=== PATIENT | female | born 1980 | race Caucasian/White ===

== ENCOUNTER 2017-04-19 15:32 | Emergency (ER) | payer SELFPAY ==
[~2017-04-19] VITALS: Ht 154.9 cm; Wt 95.3 kg
[~2017-04-19 15:32] MED LIST: ACET1TAB43 PO; ALBU8.5H2 IH; ALBU8.5H4 IH; ALPR.25T PO; AMOX500C2 PO; ASPI-586 PO; AZIT-21 PO; BENZ100C18 PO; BENZ200C25 PO; CEPH500C PO; CTLP20T PO; CYCL10TA9 PO; D50KC PO; DCS100C PO; DEPO SHOT; DEPO SHOT IM; DICL75TA2 PO; DOXY100C2 PO; EST.1TD TOP; ESTR0.5T PO; FAMO20TA5 PO; FERR-57 PO; FRSM20T PO; GBPN100C PO; GFCD10B PO; HCTZ PO; HCTZ12.5T GT; HYDR-3812 PO; HYDR1TAB PO; IBP600T1 PO; IBP800T PO; KETO-22 PO; LISINOPRIL/HCTZ; MELO-195 PO; MELO15TA39 PO; METH4TAB PO; METO-333 PO; MOBIC; MULT-305 PO; NAPR-243 PO; NEOM10DR20 LEFT EAR; NITR100C3 PO; OMEP20CA12 PO; ONDA-42 SL; PHEN200T27 PO; POTA20PI IV; POTA99TA15 PO; POTA99TA21 PO; PRCD5U PO; PRD20T PO; SSD50T TOP; TRAM-21 PO; TRAM50TA2; TRAZ-144 PO; TRIA16.5 NS; TRM50T PO; VICODIN PO; VNL75CCR PO
[2017-04-19] MEDS ORDERED: CELE-63 (15:56)
[2017-04-19] MEDS ORDERED: NS IV 500 ML 500 ML IV ONE (16:22)
--- NOTE | 2017-04-19 16:22 | ED Cardiac General ---
History of Present Illness General Chief Complaint: Respiratory Problems Stated Complaint: SHAKY,SOB Nursing Triage Note: c/o feeling "jittery" and soa x2 days Source: patient Exam Limitations: no limitations History of Present Illness Time seen by provider: 16:13 Initial Comments Patient presents to ER by private conveyance with chief complaint of for the past 2 days progressively feeling worse with some tightness in her chest and helped patient's flutters. She had an ablation for a SVT back in May by Dr. Deras in [facility]. She's never had a heart attack and she has no primary family with early heart disease. She does not have any known thyroid problems. She's been told the past to take a thiazide diuretic but does not take it except as needed. She says she occasionally feels puffy but not today. She is not having any nausea or chest pain or shortness of breath or numbness or tingling in the hands or arms jaw or neck. Allergies and Home Medications Allergies Coded Allergies: oxycodone (Unverified Allergy, Mild, 01/24/09) venlafaxine (Verified Allergy, Mild, 09/07/13) Home Medications Aspirin 81 Mg Tablet.dr, 81 MG PO DAILY, (Reported) Celecoxib 200 Mg Capsule, #30 (Reported) Hydrocodone/Acetaminophen 1 Each Tablet, 1-2 EACH PO Q6H PRN for PAIN, #30 Prescribed by: JACINTO HERRMANN on 06/26/16 1614 Review of Systems Constitutional: No chills, No diaphoresis Respiratory: Denies Cough, Denies Shortness of Air Cardiovascular: Denies Chest Pain, Denies Edema, Denies Irregular Heart Rate Gastrointestinal: See HPI, Denies Abdomen Distended, Abdominal Pain, Denies Constipated, Denies Diarrhea (loose stools), Nausea, Poor Appetite, Denies Vomiting Genitourinary: Denies Burning Musculoskeletal: No back pain, No joint pain Skin: No pruritus, No rash Psychiatric/Neurological: Denies Headache, Denies Numbness Past Kdjmsdz-Jhnagf-Wcdgra Hx Patient Social History Alcohol Use: Denies Use Recreational Drug Use: No Smoking Status: Current Everyday Smoker Type Used: Cigarettes Former Smoker/When Quit: Apr 10, 2014 2nd Hand Smoke Exposure: Yes Recent Foreign Travel: No Contact w/Someone Who Travel: No Recent Infectious Disease Expo: No Recent Hopitalizations: No Immunizations Up To Date Tetanus Booster (TDap): Unknown Date of Influenza Vaccine: Jul 06, 2014 Seasonal Allergies Seasonal Allergies: No Surgeries HX Surgeries: Yes (CARPAL TUNNEL, heart cath) Surgeries: Adenoidectomy, Appendectomy, Cardiac, Section, Hysterectomy , Oophorectomy, Orthopedic, Tonsillectomy, Tubal Ligation Respiratory Hx Respiratory Disorders: No Respiratory Disorders: Tuberculosis Cardiovascular Hx Cardiac Disorders: Yes (ABLATION) Cardiac Disorders: Chronic Edema/Swelling, Hypertension Neurological Hx Neurological Disorders: No 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 System : No Female 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: 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 Genitourinary Hx Genitourinary Disorders: Yes Genitourinary Disorders: Bladder Infection Gastrointestinal Hx Gastrointestinal Disorders: No Musculoskeletal Hx Musculoskeletal Disorders: Yes (RIGHT CARPAL TUNNEL) Musculoskeletal Disorders: Arthritis, Chronic Back Pain Endocrine Hx Endocrine Disorders: No HEENT HX ENT Disorders: No Hearing Impairment: Hard of Hearing Cancer Hx Cancer: No Psychosocial Hx Psychiatric Problems: Yes Behavioral Health Disorders: Anxiety, Depression Integumentary HX Skin/Integumentary Disorder: No Blood Transfusions Hx Blood Disorders: No Physical Exam Vital Signs Vital Sign - Last 12Hours 04/19/17 15:56 Temp 98.0 Pulse 81 Resp 18 B/P (MAP) 136/97 Pulse Ox 98 O2 Delivery Room Air Capillary Refill : Less Than 3 Seconds General Appearance: No Apparent Distress, WD/WN HEENT: PERRL/EOMI, Pharynx Normal Neck: Full Range of Motion, Supple Respiratory: Chest Non Tender, Lungs Clear, Normal Breath Sounds Cardiovascular: Regular Rate, Rhythm, No Edema Gastrointestinal: Normal Bowel Sounds, No Organomegaly, No Pulsatile Mass, Soft , Tenderness (pain in his epigastrium and right upper quadrant. Jason's positive.) Extremity: Normal Capillary Refill, Normal Inspection, No Pedal Edema Neurologic/Psychiatric: Alert, Oriented x3 Skin: Normal Color, Warm/Dry Progress/Results/Core Measures Results/Orders Lab Results Laboratory Tests Test 04/19/17 16:25 04/19/17 16:35 Range/Units Urine Color YELLOW Urine Clarity SLIGHTLY CLOUDY Urine pH 7 5-9 Urine Specific [place] 1.010 L 1.016-1.022 Urine Protein NEGATIVE NEGATIVE Urine Glucose (UA) NEGATIVE NEGATIVE Urine Ketones NEGATIVE NEGATIVE Urine Nitrite NEGATIVE NEGATIVE Urine Bilirubin NEGATIVE NEGATIVE Urine Urobilinogen 4 H NORMAL MG/DL Urine Leukocyte Esterase NEGATIVE NEGATIVE Urine RBC (Auto) NEGATIVE NEGATIVE Urine RBC NONE /HPF Urine WBC NONE /HPF Urine Squamous Epithelial Cells 5-10 /HPF Urine Crystals NONE /LPF Urine Bacteria TRACE /HPF Urine Casts NONE /LPF Urine Mucus NEGATIVE /LPF Urine Culture Indicated NO White Blood Count 11.6 H 4.3-11.0 10^3/uL Red Blood Count 5.21 4.35-5.85 10^6/uL Hemoglobin 14.7 11.5-16.0 G/DL Hematocrit 44 35-52 % Mean Corpuscular Volume 84 80-99 FL Mean Corpuscular Hemoglobin 28 25-34 PG Mean Corpuscular Hemoglobin Concent 34 32-36 G/DL Red Cell Distribution Width 13.1 10.0-14.5 % Platelet Count 328 130-400 10^3/uL Mean Platelet Volume 9.7 7.4-10.4 FL Neutrophils (%) (Auto) 66 42-75 % Lymphocytes (%) (Auto) 25 12-44 % Monocytes (%) (Auto) 8 0-12 % Eosinophils (%) (Auto) 1 0-10 % Basophils (%) (Auto) 0 0-10 % Neutrophils # (Auto) 7.6 1.8-7.8 X 10^3 Lymphocytes # (Auto) 2.9 1.0-4.0 X 10^3 Monocytes # (Auto) 0.9 0.0-1.0 X 10^3 Eosinophils # (Auto) 0.2 0.0-0.3 10^3/uL Basophils # (Auto) 0.0 0.0-0.1 10^3/uL Sodium Level 139 135-145 MMOL/L Potassium Level 4.5 3.6-5.0 MMOL/L Chloride Level 107 98-107 MMOL/L Carbon Dioxide Level 22 21-32 MMOL/L Anion Gap 10 5-14 MMOL/L Blood Urea Nitrogen 6 L 7-18 MG/DL Creatinine 0.74 0.60-1.30 MG/DL Estimat Glomerular Filtration Rate > 60 BUN/Creatinine Ratio 8 Glucose Level 96 70-105 MG/DL Calcium Level 9.2 8.5-10.1 MG/DL Magnesium Level 2.6 H 1.8-2.4 MG/DL Total Bilirubin 0.3 0.1-1.0 MG/DL Aspartate Amino Transf (AST/SGOT) 26 5-34 U/L Alanine Aminotransferase (ALT/SGPT) 30 0-55 U/L Alkaline Phosphatase 132 40-136 U/L Troponin I < 0.30 <0.30 NG/ML B-Type Natriuretic Peptide < 10.0 <100.0 PG/ML Total Protein 7.5 6.4-8.2 GM/DL Albumin 4.0 3.2-4.5 GM/DL Thyroid Stimulating Hormone (TSH) 0.49 0.35-4.94 UIU/ML My Orders Orders - AMANDA CORTES Continuous Ekg Monitoring (04/19/17 16:00) Ekg Tracing (04/19/17 16:00) BNP (04/19/17 16:22) Cbc With Automated Diff (04/19/17 16:22) Comprehensive Metabolic Panel (04/19/17 16:22) Magnesium (04/19/17 16:22) Thyroid Stimulating Hormone (04/19/17 16:22) Troponin I (04/19/17 16:22) Ua Culture If Indicated (04/19/17 16:22) Chest 1 View, Ap/Pa Only (04/19/17 16:22) Saline Lock/Iv-Start (04/19/17 16:22) Ns Iv 500 Ml (Sodium Chloride 0.9%) (04/19/17 16:22) Continuous Ekg Monitoring (04/19/17 16:24) Medications Given in ED Current Medications Medications Dose Ordered Sig/Macho Route Start Time Stop Time Status Last Admin Dose Admin Sodium Chloride 500 ml @ 0 mls/hr Q0M ONCE IV 04/19/17 16:22 04/19/17 16:24 DC 04/19/17 16:33 0 MLS/HR Vital Signs/I&O Vital Sign - Last 12Hours 04/19/17 15:56 Temp 98.0 Pulse 81 Resp 18 B/P (MAP) 136/97 Pulse Ox 98 O2 Delivery Room Air Blood Pressure Mean: 110 Progress Note : Time: 18:26 Progress Note Blood results looking for possible damage to heart myocardium was also unremarkable. We will let her go home and follow up with Dr. Trammell Friday morning in the clinic. ECG Initial ECG Impression Date: Apr 19, 2017 Initial ECG Impression Time: 16:01 Initial ECG Rate: 84 Initial ECG Rhythm: Normal Sinus Initial ECG Intervals: Normal Initial ECG Impression: Normal Initial ECG Comparisson: No Previous ECG Available Comment No ST wave elevation or depression. Diagnostic Imaging Diagonstic Imaging: Xray, CT Plain Films/CT/US/NM/MRI: chest Comments NAME: ABBI FELIZ MED REC#: [id number] PHYSICIAN: AMANDA CORTES MD CC: MICHAEL DE GUZMAN MD; AMANDA CORTES Page 1 of 1 RADIOLOGY REPORT [place]IA [place], [place] CC: MICHAEL DE GUZMAN MD; AMANDA CORTES Page 1 of 1 RADIOLOGY REPORT NAME: ABBI FELIZ MED REC#: [id number] PT STATUS: REG ER : 1980 PHYSICIAN: AMANDA CORTES MD ADMIT DATE: 04/19/17/ER Signed Date of Exam: 04/19/17 CHEST 1 VIEW, AP/PA ONLY INDICATION: Shortness of air, jittery for two today's. ? EXAMINATION: Frontal chest, 04/19/2017. COMPARISON: Chest from 06/11/16. FINDINGS: The heart is slightly prominent and there is mild pulmonary vasculature congestion. There are no effusions or infiltrates. There is no pneumothorax. IMPRESSION: Cardiomegaly with mild pulmonary vasculature congestion suspected. Dictated by: Dictated on workstation # [id number] Dict: 04/19/17 1637 Trans: 04/19/17 1713 Interpreted by: MICHAEL DE GUZMAN MD Electronically signed by: MICHAEL DE GUZMAN MD 04/19/17 1713 Reviewed: Reviewed by Me Departure Impression Impression: Primary Impression: Heart palpitations Additional Impression: Chest tightness Disposition: 01 HOME, SELF-CARE Condition: Stable Departure-Patient Inst. Decision time for Depature: 18:28 Referrals: GABRIEL GARIBAY DO (PCP/Family) Primary Care Physician Patient Instructions: Palpitations (DC) Add. Discharge Instructions: Go home drink plenty fluids and avoid copious amounts of caffeine. Take your medicines as prescribed by your heart doctor. If you have another run of palpitations you can try bearing down as in the valsalva maneuver (as though you 're having a bowel movement) to see if this breaks them. Time how long they last. If they're accompanied by chest pain, nausea and vomiting, or numbness in her arms, neck, or jaw you should return to the ER. Otherwise plan on following up with your Dr. Farr at [phone] Friday morning to get an appointment to be seen within the following week or two. All discharge instructions reviewed with patient and/or family. Voiced understanding. Copy Copies To 1: GABRIEL GARIBAY DO Copies To 2: MITZY FARR MD FACP FACC CCDS AMANDA CORTES Apr 19, 2017 16:22
[2017-04-19 16:43] LABS: BILIRUBIN,URINE NEGATIVE (NEGATIVE); KETONES,URINE NEGATIVE (NEGATIVE); LEUKOCYTE ESTERASE ,URINE NEGATIVE (NEGATIVE); NITRITE,URINE NEGATIVE (NEGATIVE); PH,URINE 7 (5-9); PROTEIN,URINE NEGATIVE (NEGATIVE); UROBILINOGEN,URINE 4 MG/DL (NORMAL)
--- NOTE | 2017-04-19 16:47 | Diagnostic Imaging Report ---
INDICATION: Shortness of air, jittery for two today's. ? EXAMINATION: Frontal chest, 04/19/2017. COMPARISON: Chest from 06/11/16. FINDINGS: The heart is slightly prominent and there is mild pulmonary vasculature congestion. There are no effusions or infiltrates. There is no pneumothorax. IMPRESSION: Cardiomegaly with mild pulmonary vasculature congestion suspected. Dictated by: Dictated on workstation # [id number]
[2017-04-19 16:48] LABS: BASOPHILS % (AUTO) 0 % (0-10); EOSINOPHILS # (AUTO) 0.2 10^3/uL (0.0-0.3); EOSINOPHILS % (AUTO) 1 % (0-10); LYMPHOCYTES # (AUTO) 2.9 X 10^3 (1.0-4.0); LYMPHOCYTES % (AUTO) 25 % (12-44); MEAN CORPUSCULAR HEMOGLOBIN 28 PG (25-34); MEAN CORPUSCULAR HGB CONC 34 G/DL (32-36); MEAN CORPUSCULAR VOLUME 84 FL (80-99); MEAN PLATELET VOLUME 9.7 FL (7.4-10.4); MONOCYTES # (AUTO) 0.9 X 10^3 (0.0-1.0); MONOCYTES % (AUTO) 8 % (0-12); NEUTROPHILS # (AUTO) 7.6 X 10^3 (1.8-7.8); NEUTROPHILS % (AUTO) 66 % (42-75); PLATELET COUNT 328 10^3/uL (130-400); RED BLOOD COUNT 5.21 10^6/uL (4.35-5.85); RED CELL DISTRIBUTION WIDTH 13.1 % (10.0-14.5); WHITE BLOOD COUNT 11.6 10^3/uL (4.3-11.0)
[2017-04-19 17:19] LABS: ALANINE AMINOTRANSFERASE 30 U/L (0-55); ANION GAP 10 MMOL/L (5-14); ASPARTATE AMINO TRANSFERASE 26 U/L (5-34); BILIRUBIN,TOTAL 0.3 MG/DL (0.1-1.0); BLOOD UREA NITROGEN 6 MG/DL (7-18); BUN/CREATININE RATIO 8; CALCIUM 9.2 MG/DL (8.5-10.1); CARBON DIOXIDE 22 MMOL/L (21-32); CHLORIDE 107 MMOL/L (98-107); CREATININE SERUM 0.74 MG/DL (0.60-1.30); GFR ESTIMATED > 60; GLUCOSE 96 MG/DL (70-105); MAGNESIUM 2.6 MG/DL (1.8-2.4); SODIUM 139 MMOL/L (135-145); TOTAL PROTEIN 7.5 GM/DL (6.4-8.2)
[2017-04-19 17:27] LABS: POTASSIUM 4.5 MMOL/L (3.6-5.0)
[2017-04-19 17:39] LABS: THYROID STIMULATING HORMONE 0.49 UIU/ML (0.35-4.94); TROPONIN I < 0.30 NG/ML (<0.30)
[2017-04-19 18:37] VITALS: BP 128/100
== END 2017-04-19 18:35 | disposition home or self-care (01) ==
LOC: EDUNIT# 15:32 → ER 15:35
DX: R00.2 Palpitations (principal); R07.89 Other chest pain; I10 Essential (primary) hypertension; M19.90 Unspecified osteoarthritis, unspecified site; F41.9 Anxiety disorder, unspecified; F32.9 Major depressive disorder, single episode, unspecified; M54.9 Dorsalgia, unspecified; G89.29 Other chronic pain; F17.210 Nicotine dependence, cigarettes, uncomplicated; Z79.82 Long term (current) use of aspirin; Z90.89 Acquired absence of other organs; Z90.710 Acquired absence of both cervix and uterus; Z98.51 Tubal ligation status
CPT/HCPCS: 36415; 71010; 80053; 81000; 83735; 83880; 84443; 84484; 85025

== ENCOUNTER → 2017-11-06 | Outpatient (CLI) | payer OTHER ==
[~2017-11-06] MED LIST changes: +ACHD5005 PO; +CELE-63; -HYDR-3812 PO
--- NOTE | 2017-11-06 12:49 | Diagnostic Imaging Report ---
INDICATION: Right nipple discharge. Correlation is made with prior mammogram from 02/22/2016 and 09/23/2013. The current study was also evaluated with a Computer Aided Detection (CAD) system. FINDINGS: Both breasts are primarily involutional. No mass or malignant-appearing microcalcifications are seen. The axillae are unremarkable. IMPRESSION: No mammographic features suspicious for malignancy. However, since patient has right nipple discharge, further evaluation of the retroareolar right breast with ultrasound is recommended. ACR BI-RADS Category 0: Incomplete. (Needs additional imaging evaluation). Result letter will be mailed to the patient. Note: At least 10% of breast cancer is not imaged by mammography. Dictated by: Dictated on workstation # [id number]
--- NOTE | 2017-11-06 12:55 | Diagnostic Imaging Report ---
Indication: Right nipple discharge. Comparison: Correlation is made with the mammogram earlier the same day. Findings: Sonographic interrogation of the retroareolar right breast was performed. No solid or cystic mass is identified. Impression: BI-RADS category 1. No sonographic abnormality is identified. ACR BI-RADS Category 1: Negative. Result letter will be mailed to the patient. Note: At least 10% of breast cancer is not imaged by mammography. Dictated by: Dictated on workstation # [id number]
== END ==
LOC: RAD 09:27
DX: N64.52 Nipple discharge (principal)
CPT/HCPCS: 76641; 77067

== ENCOUNTER 2018-04-08 19:55 | Emergency (ER) | payer SELFPAY ==
[~2018-04-08] VITALS: Ht 154.9 cm; Wt 86.2 kg
[2018-04-08] MEDS ORDERED: RT-ALBUTEROL/IPRATROPIUM 3 ML (DUONEB) VIAL INH ONE (20:15)
--- NOTE | 2018-04-08 20:21 | ED Cough/URI ---
General Chief Complaint: Cough/Cold/Flu Symptoms Stated Complaint: HURTS TO BREATHE Source: patient Exam Limitations: no limitations History of Present Illness Date Seen by Provider: Apr 08, 2018 Time Seen by Provider: 20:20 Initial Comments Patient is a 38-year-old female who presents to the emergency room with complaints of upper respiratory infection. She states that last she started with a runny nose and sore throat. It has settled into her lungs at this time causing her to cough and causing her pain when she does cough. She denies any other chest pain other than with coughing. Denies shortness of breath , nausea, vomiting, fevers. Timing/Duration: week Severity/Quality: mild, dry cough Prior Episodes/Possible Cause: no prior episodes Associated Symptoms: cough, sore throat Allergies and Home Medications Allergies Coded Allergies: oxycodone (Unverified Allergy, Mild, 01/24/09) venlafaxine (Verified Allergy, Mild, 09/07/13) Home Medications Aspirin 81 Mg Tablet.dr, 81 MG PO DAILY, (Reported) Azithromycin 250 Mg Tablet, 250 MG PO UD Prescribed by: MARIA R BRAND on 04/08/182104 Hydrocodone Bit/Acetaminophen 1 Each Tablet, 1-2 EACH PO Q6H PRN for PAIN Prescribed by: JACINTO HERRMANN on 06/26/16 161 Prednisone 10 Mg Tab.ds.pk, 10 MG PO UD Prescribed by: MARIA R BRAND on 04/08/182104 Patient Home Medication List Home Medication List Reviewed: Yes Review of Systems Constitutional: see HPI; No dizziness, No fever, No malaise EENTM: see HPI; No ear discharge, No hearing loss, No ear pain Respiratory: see HPI, cough; No dyspnea on exertion, No short of breath, No stridor Cardiovascular: see HPI; No chest pain, No edema Gastrointestinal: see HPI; No abdominal pain, No constipation, No nausea, No vomiting Genitourinary: see HPI; No decreased output, No discharge Musculoskeletal: see HPI; No back pain, No gout Skin: see HPI; No change in color, No change in hair/nails, No dryness Psychiatric/Neurological: See HPI; Denies Anxiety, Denies Depressed, Denies Emotional Problems, Denies Headache Hematologic/Lymphatic: See HPI; Denies Anemia, Denies Blood Clots Immunological/Allergic: see HPI; denies food allergy, denies grass allergy All Other Systems Reviewed Negative Unless Noted: Yes Past Mivybui-Lxukrf-Gkjdof Hx Past Med/Social Hx: Reviewed Nursing Past Med/Soc Hx Patient Social History Alcohol Use: Occasionally Uses Recreational Drug Use: No Drug of Choice: PAST HX MARIJ[place] Smoking Status: Current Everyday Smoker Type Used: Cigarettes 2nd Hand Smoke Exposure: Yes Recent Foreign Travel: No Contact w/Someone Who Travel: No Recent Hopitalizations: No Physical Abuse: No Sexual Abuse: No Mistreated: No Fear: No Immunizations Up To Date Tetanus Booster (TDap): Unknown Date of Influenza Vaccine: Jul 06, 2014 Seasonal Allergies Seasonal Allergies: No Past Medical History Surgeries: Yes (CARPAL TUNNEL, heart cath, ablation) Adenoidectomy, Appendectomy, Cardiac, Section, Hysterectomy, Oophorectomy, Orthopedic, Tonsillectomy, Tubal Ligation Respiratory: No Tuberculosis Cardiac: Yes (ABLATION for SVT) Chronic Edema/Swelling, Hypertension Neurological: No Female 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 Disorders: Endometriosis 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 oz. 95.383360kj; 37.78 BMI Method:Stated General Appearance: WD/WN, no apparent distress Eyes: Bilateral Eye Normal Inspection, Bilateral Eye PERRL, Bilateral Eye EOMI HEENT: PERRL/EOMI, normal ENT inspection, TMs normal, pharynx normal Neck: non-tender, full range of motion, supple, normal inspection Respiratory: chest non-tender, normal breath sounds, no respiratory distress, no accessory muscle use, wheezing (faint wheezes in the lower lobes bilaterally) Cardiovascular: regular rate, rhythm, no edema, no gallop, no JVD, no murmur Gastrointestinal: non tender, soft, no organomegaly, no pulsatile mass Extremities: normal range of motion, non-tender, normal inspection, no pedal edema, no calf tenderness Neurologic/Psychiatric: alert, normal mood/affect, oriented x 3 Skin: normal color, warm/dry Lymphatic: no adenopathy Progress/Results/Core Measures Suspected Sepsis SIRS Temperature: Pulse: Respiratory Rate: Blood Pressure / Mean: Results/Orders My Orders Orders - MARIA R BRAND Chest Pa/Lat (2 View) (04/08/18 20:09) Albuterol/Ipra Inhalation Soln (Duoneb I (04/08/18 20:15) Svn Small Volume Nebulizer (04/08/18 20:09) Medications Given in ED Vital Signs/I&O 04/08/18 04/08/18 04/08/18 04/08/18 20:07 20:20 20:25 21:21 Temp 97.4 97.4 Pulse 77 77 Resp 16 16 B/P (MAP) 142/101 (115) 142/101 (115) Pulse Ox 98 99 99 O2 Delivery Room Air Room Air Room Air Capillary Refill : Progress Note : Progress Note Patient is feeling better after administration of DuoNeb the wheezing has cleared in her lungs. She does report that she has a Pro Air inhaler at home. She agrees for planes of discharge. Prescriptions for steroid and antibiotic were sent with the patient. Departure Impression Primary Impression: Upper respiratory infection Disposition: 01 HOME, SELF-CARE Condition: Stable/Unchanged Departure-Patient Inst. Decision time for Depature: 20:55 Referrals: [facility] [place] Primary Care Physician Add. Discharge Instructions: Take medications as directed. Continue to use your [id number] cough suppressants. Follow up with your doctor within 1 week for recheck. Return back to the emergency room for any concerns as needed. All discharge instructions reviewed with patient and/or family. Voiced understanding. Scripts Azithromycin (Azithromycin) 250 Mg Tablet 250 MG PO UD for 1 Package, #1 TAB Prov: MARIA R BRAND 04/08/18 Prednisone (Prednisone) 10 Mg Tab.ds.pk 10 MG PO UD, #1 PKG Prov: MARIA R BRAND 04/08/18 Work/School Note: Work Release Form Date Seen in the Emergency Department: Apr 08, 2018 Return to Work: Apr 10, 2018 Restrictions: No Restrictions MARIA R BRAND Apr 08, 2018 20:21
--- NOTE | 2018-04-08 20:52 | Diagnostic Imaging Report ---
Clinical indication: Patient with shortness of air, cough and congestion x 2 days. Exam: Chest x-ray PA and lateral views. Comparisons: Chest x-ray dated 04/19/2017. Findings: Lungs/pleura: Lungs are clear. There is no pneumothorax. There is no pleural effusion. Mediastinum: Unremarkable. Pulmonary vasculature: Unremarkable. Heart: Unremarkable. Bones/extrathoracic soft tissue: There are degenerative spurs involving the thoracic spine. Impression: There is no radiographic evidence of acute cardiopulmonary process. Dictated by: Dictated on workstation # [id number]
[2018-04-08] MEDS ORDERED: PRED10TA22 PO (21:05)
[2018-04-08] MEDS ORDERED: AZIT250T12 PO (21:05)
[2018-04-08 21:21] VITALS: BP 142/101
== END 2018-04-08 21:22 | disposition home or self-care (01) ==
LOC: ER 19:55
DX: J06.9 Acute upper respiratory infection, unspecified (principal); I10 Essential (primary) hypertension; F41.9 Anxiety disorder, unspecified; F32.9 Major depressive disorder, single episode, unspecified; F17.210 Nicotine dependence, cigarettes, uncomplicated; Z90.89 Acquired absence of other organs; Z87.59 Personal history of other complications of pregnancy, childbirth and the puerperium; Z87.448 Personal history of other diseases of urinary system; Z90.710 Acquired absence of both cervix and uterus; Z98.51 Tubal ligation status; Z88.5 Allergy status to narcotic agent; Z88.8 Allergy status to other drugs, medicaments and biological substances; Z79.82 Long term (current) use of aspirin; Z79.52 Long term (current) use of systemic steroids
CPT/HCPCS: 71046; 94640

== ENCOUNTER 2018-11-14 10:23 | Emergency (ER) | payer OTHER ==
[~2018-11-14] VITALS: Ht 154.9 cm; Wt 83.9 kg
[~2018-11-14 10:23] MED LIST changes: +AZIT250T12 PO; +PRED10TA22 PO
--- OUTSIDE RECORDS SUMMARY | 2018-11-14 10:30 | XMS REPORT | Clinical Summary ---
Author Author [facility] Organization [facility] Address Unknown Phone Unavailable Care Team Providers Care Nuclear Powerplant Supervisor Name Role Phone Sue Lawson APRN Unavailable Outpatient, Radiologist Unavailable Unavailable Antonia Devries PCP Sissy Bowen MD 6 Source Comments Some departments are not documenting in the electronic medical record. If you do not see the information that you expected, contact Release of Information in the Health Information Management department at [phone] for further assistance in locating additional records.[facility] Allergies Comments Active Allergy Reactions Severity Noted Date Venlafaxine PALPITATIONS Low 03/07/2016 very low blood pressure Oxycodone-Acetaminophen SEE COMMENTS Low 03/07/2016 Medications End Date Status Medication Sig Dispensed Refills Start Date Active meloxicam (MOBIC) 7.5 mg Take 15 mg by 0 tablet mouth daily. Active traMADol (ULTRAM) 50 mg Take 50 mg by 0 tablet mouth twice daily. Active ERGOCALCIFEROL (VITAMIN Take 5,000 0 D2) (VITAMIN D PO) Units by mouth. Active hydrochlorothiazide Take 12.5 mg 0 (HYDRODIURIL) 12.5 mg tab by mouth tablet daily. Active aspirin 81 mg chewable Chew 81 mg by 0 tablet mouth daily. Take with food. 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 CTA Chest - no pulm embolism or aortic dissection; minimal hiatal hernia and fatty infiltration of the liver history of palpitations lasting up to 10 min 03/10/16 to ED Gastroesophageal reflux disease without esophagitis 06/12/2016 Essential hypertension 06/12/2016 Overview: treated with hctz (and metoprolol) Tobacco use 06/12/2016 Nipple discharge 03/07/2016 Overview: Diagnosis: Right nipple discharge History: Ms. Alejandra Murray is a female who presented to [facility] on 03/07/2016 at age 36 for evaluation of right nipple discharge. She reports a history of bilateral milky white discharge, but since 2013 the discharge has only been on the right. In early February 2016, the discharge became green in color from an outer duct and clear from a central duct. Ms. Murray states that the discharge was spontaneous for one episode, but has otherwise been mostly nonspontaneous. She saw her provider for evaluation and a guac test of the discharge was heme positive. Breast imaging was ordered and outside bilateral diagnostic mammograms and right breast ultrasound were negative. She was referred to the surgery clinic for evaluation. Breast Imaging: Mammogram: Bilateral diagnostic mammograms 09/23/13 ([facility]) for nipple discharge, showed scattered fibroglandular densities. There were no abnormal findings in the left breast. In the right breast, there was an asymmetry projecting behind the nipple on MLO view. Compression views of this asymmetry showed no underlying lesion with the appearance of background scattered fibroglandular densities. Bilateral diagnostic mammograms 02/22/16 ([facility]) showed scattered fibroglandular densities. No abnormal findings were seen. Ultrasound: Bilateral breast ultrasound 09/23/13 ([facility]) showed no abnormal findings. BIRADS 1. Right breast ultrasound 02/22/16 ([facility]) showed no abnormal findings; BIRADS 1. Pertinent PMH: Arthritis, HTN, edema; early menopause due to hyst/BSO Family History: Maternal grandmother with breast cancer at 76. Patient reports that multiple relatives on her maternal side had either breast cancer or a female cancer. Paternal history unknown. 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 health: Age at Menarche: 7 Age at First Live : 16 Age at Menopause: surgical menopause at 32, HRT for 7 months : 2 Para: 2 : Yes, x 1 month Physical Exam on Presentation: Right breast- area of tenderness with palpation in the UIQ. No palpable masses. Green discharge noted from a single duct in the LOQ of the nipple. No skin changes. Left breast- no palpable masses or skin changes. No axillary, infraclavicular, or supraclavicular adenopathy. Referred by: Dr. Sissy Bowen Surgeon: Dr. Moran Immunizations Name Dates Previously Given Next Due Flu Vaccine=>3 YO 06/22/2014 (Historical) Family History Medical History Relation Name Comments Arthritis-osteo Maternal Grandmother Cancer-Breast Maternal Grandmother Diabetes Maternal Grandmother Hypertension Maternal Grandmother Depression Mother Diabetes Mother Relation Name Status Comments Father Alive Maternal Grandmother (Age 76) Mother (Age 55) Social History Date Tobacco Use Types Packs/Day Years Used Current Every Day Smoker Cigarettes 0.25 15 Smokeless Tobacco: Never Used Tobacco Cessation: Ready to Quit: Yes Alcohol Use Drinks/Week oz/Week Comments Yes occasionally Sex Assigned at Date Recorded Not on file Industry Job Start Date Occupation Not on file Not on file Not on file Travel End Travel History Travel Start No recent travel history available. Last Filed Vital Signs Time Taken Vital Sign Reading 06/21/2016 9:47 AM CDT Blood Pressure 112/52 06/21/2016 9:47 AM CDT Pulse 80 06/21/2016 9:47 AM CDT Temperature 36.9 C (98.5 F) 03/07/2016 10:32 AM CDT Respiratory Rate 16 06/21/2016 9:47 AM CDT Oxygen Saturation 95% - Inhaled Oxygen - Concentration 06/20/2016 8:45 AM CDT Weight 96.6 kg (212 lb 15.4 oz) 06/20/2016 8:45 AM CDT Height 154.9 cm (5' 1") 06/20/2016 8:45 AM CDT Body Mass Index 40.24 Plan of Treatment Health Maintenance Due Date Last Done Comments PHYSICAL (COMPREHENSIVE) 1985 EXAM HIV SCREENING 1993 DTAP/TDAP VACCINES ( - 1996 Tdap) CERVICAL CANCER SCREENING 2008 BREAST CANCER SCREENING 2018 INFLUENZA VACCINE 04/22/2018 06/22/2014 Results Not on filefrom Last 3 Months Insurance Payer Benefit Subscriber ID Type Phone Address Plan / Group [facility] MEDICAID [facility] xxxxxxxxxxx Medicaid [place] [place] Advance Directives Patient has advance care planning documents, and code status on file. For more information, please contact: [facility] [address] [place] [address] Date Inactivated Comments Code Status Date Activated 06/21/2016 8:29 PM Full Code 06/20/2016 8:33 AM Provider has discussed Code Status No, more discussion w/Patient or Family? needed
--- OUTSIDE RECORDS SUMMARY | 2018-11-14 10:33 | XMS REPORT | Continuity of Care Document ---
Author Author [facility] Address Unknown Phone Unavailable Allergies Active Description Code Type Severity Reaction Onset Reported/Identified Relationship to Patient Clinical Status Yes EFFEXOR XR UNKNOWN UNKNOWN Yes WELLBUTRIN XL UNKNOWN UNKNOWN Yes oxycodone [id number] Drug Allergy Mild N/A 01/24/2009 Yes Percocet Drug Allergy 06/08/2012 Yes Percocet Drug Allergy N/A N/A 06/08/2012 Yes venlafaxine [id number] Drug Allergy Mild N/A 09/07/2013 Yes Effexor Drug Allergy N/A N/A 10/07/2013 Medications There is no data. Problems Date Dx Coded Attending Type Code Diagnosis Diagnosed By PALOMO ALARCON APRN Ot M54.5 LOW BACK PAIN 04/26/2008 GARIBAY DO, GABRIEL K 466.0 Bronchitis, Acute 04/26/2008 GARIBAY DO, GABRIEL K 466.0 Bronchitis, Acute 04/26/2008 GARIBAY DO, GABRIEL K 466.0 Bronchitis, Acute 04/26/2008 GARIBAY DO, GABRIEL K 466.0 Bronchitis, Acute 04/26/2008 466.0 Bronchitis, Acute 04/26/2008 466.0 Bronchitis, Acute 04/26/2008 466.0 Bronchitis, Acute 04/26/2008 GARIBAY DO, GABRIEL K 466.0 Bronchitis, Acute 04/26/2008 GARIBAY DO, GABRIEL K 466.0 Bronchitis, Acute 04/26/2008 GARIBAY DO, GABRIEL K 466.0 Bronchitis, Acute 04/26/2008 GARIBAY DO, GABRIEL K 466.0 Bronchitis, Acute 04/26/2008 GARIBAY DO, GABRIEL K 466.0 Bronchitis, Acute 04/26/2008 GARIBAY DO, GABRIEL K 466.0 Bronchitis, Acute 04/26/2008 GARIBAY DO, GABRIEL K 466.0 Bronchitis, Acute 04/26/2008 GARIBAY DO, GABRIEL K 466.0 Bronchitis, Acute 04/26/2008 GARIBAY DO, GABRIEL K 466.0 Bronchitis, Acute 04/26/2008 GARIBAY DO, GABRIEL K 466.0 Bronchitis, Acute 04/26/2008 GARIBAY DO, GABRIEL K 466.0 Bronchitis, Acute 08/30/2008 GARIBAY DO, GABRIEL K 786.9 Other Symptoms Involving Respiratory System And Chest 08/30/2008 GARIBAY DO, GABRIEL K 796.2 Elevated Blood Pressure Reading Without Diagnosis Of Hypertension 08/30/2008 GARIBAY DO, GABRIEL K 786.9 Other Symptoms Involving Respiratory System And Chest 08/30/2008 GARIBAY DO, GABRIEL K 796.2 Elevated Blood Pressure Reading Without Diagnosis Of Hypertension 08/30/2008 GARIBAY DO, GABRIEL K 786.9 Other Symptoms Involving Respiratory System And Chest 08/30/2008 GARIBAY DO, GABRIEL K 796.2 Elevated Blood Pressure Reading Without Diagnosis Of Hypertension 08/30/2008 GARIBAY DO, GABRIEL K 786.9 Other Symptoms Involving Respiratory System And Chest 08/30/2008 GARIBAY DO, GABRIEL K 796.2 Elevated Blood Pressure Reading Without Diagnosis Of Hypertension 08/30/2008 786.9 Other Symptoms Involving Respiratory System And Chest 08/30/2008 796.2 Elevated Blood Pressure Reading Without Diagnosis Of Hypertension 08/30/2008 786.9 Other Symptoms Involving Respiratory System And Chest 08/30/2008 796.2 Elevated Blood Pressure Reading Without Diagnosis Of Hypertension 08/30/2008 786.9 Other Symptoms Involving Respiratory System And Chest 08/30/2008 796.2 Elevated Blood Pressure Reading Without Diagnosis Of Hypertension 08/30/2008 GARIBAY DO, GABRIEL K 786.9 Other Symptoms Involving Respiratory System And Chest 08/30/2008 GARIBAY DO, GABRIEL K 796.2 Elevated Blood Pressure Reading Without Diagnosis Of Hypertension 08/30/2008 GARIBAY DO, GABRIEL K 786.9 Other Symptoms Involving Respiratory System And Chest 08/30/2008 GARIBAY DO, GABRIEL K 796.2 Elevated Blood Pressure Reading Without Diagnosis Of Hypertension 08/30/2008 GARIBAY DO, GABRIEL K 786.9 Other Symptoms Involving Respiratory System And Chest 08/30/2008 GARIBAY DO, GABRIEL K 796.2 Elevated Blood Pressure Reading Without Diagnosis Of Hypertension 08/30/2008 GARIBAY DO, GABRIEL K 786.9 Other Symptoms Involving Respiratory System And Chest 08/30/2008 GARIBAY DO, GABRIEL K 796.2 Elevated Blood Pressure Reading Without Diagnosis Of Hypertension 08/30/2008 GARIBAY DO, GABRIEL K 786.9 Other Symptoms Involving Respiratory System And Chest 08/30/2008 GARIBAY DO, GABRIEL K 796.2 Elevated Blood Pressure Reading Without Diagnosis Of Hypertension 08/30/2008 GARIBAY DO, GABRIEL K 786.9 Other Symptoms Involving Respiratory System And Chest 08/30/2008 GARIBAY DO, GABRIEL K 796.2 Elevated Blood Pressure Reading Without Diagnosis Of Hypertension 08/30/2008 GARIBAY DO, GABRIEL K 786.9 Other Symptoms Involving Respiratory System And Chest 08/30/2008 GARIBAY DO, GABRIEL K 796.2 Elevated Blood Pressure Reading Without Diagnosis Of Hypertension 08/30/2008 GARIBAY DO, GABRIEL K 786.9 Other Symptoms Involving Respiratory System And Chest 08/30/2008 GARIBAY DO, GABRIEL K 796.2 Elevated Blood Pressure Reading Without Diagnosis Of Hypertension 08/30/2008 GARIBAY DO, GABRIEL K 786.9 Other Symptoms Involving Respiratory System And Chest 08/30/2008 GARIBAY DO, GABRIEL K 796.2 Elevated Blood Pressure Reading Without Diagnosis Of Hypertension 08/30/2008 GARIBAY DO, GABRIEL K 786.9 Other Symptoms Involving Respiratory System And Chest 08/30/2008 GARIBAY DO, GABRIEL K 796.2 Elevated Blood Pressure Reading Without Diagnosis Of Hypertension 08/30/2008 GARIBAY DO, GABRIEL K 786.9 Other Symptoms Involving Respiratory System And Chest 08/30/2008 GARIBAY DO, GABRIEL K 796.2 Elevated Blood Pressure Reading Without Diagnosis Of Hypertension 11/09/2008 GARIBAY DO GABRIEL K 251.1 HYPERINSULINISM (EXOGENOUS) 11/09/2008 LANI ASHFORD GABRIEL K V72.3 GYNECOLOGICAL EXAMINATION 11/09/2008 DAILY GARIBAY DOA K 251.1 HYPERINSULINISM (EXOGENOUS) 11/09/2008 LANI ASHFORD GABRIEL K V72.3 GYNECOLOGICAL EXAMINATION 11/09/2008 GARIBAY DO GABRIEL K 251.1 HYPERINSULINISM (EXOGENOUS) 11/09/2008 LANI ASHFORD GABRIEL K V72.3 GYNECOLOGICAL EXAMINATION 11/09/2008 LANI ASHFORD GABRIEL K 251.1 HYPERINSULINISM (EXOGENOUS) 11/09/2008 GARIBAY DO GABRIEL K V72.3 GYNECOLOGICAL EXAMINATION 11/09/2008 251.1 HYPERINSULINISM (EXOGENOUS) 11/09/2008 V72.3 GYNECOLOGICAL EXAMINATION 11/09/2008 251.1 HYPERINSULINISM (EXOGENOUS) 11/09/2008 V72.3 GYNECOLOGICAL EXAMINATION 11/09/2008 251.1 HYPERINSULINISM (EXOGENOUS) 11/09/2008 V72.3 GYNECOLOGICAL EXAMINATION 11/09/2008 GARIBAY DO, GABRIEL K 251.1 HYPERINSULINISM (EXOGENOUS) 11/09/2008 GARIBAY DO, GABRIEL K V72.3 GYNECOLOGICAL EXAMINATION 11/09/2008 GARIBAY DO, GABRIEL K 251.1 HYPERINSULINISM (EXOGENOUS) 11/09/2008 GARIBAY DO, GABRIEL K V72.3 GYNECOLOGICAL EXAMINATION 11/09/2008 GARIBAY DO, GABRIEL K 251.1 HYPERINSULINISM (EXOGENOUS) 11/09/2008 GARIBAY DO, GABRIEL K V72.3 GYNECOLOGICAL EXAMINATION 11/09/2008 GARIBAY DO, GABRIEL K 251.1 HYPERINSULINISM (EXOGENOUS) 11/09/2008 GARIBAY DO, GABRIEL K V72.3 GYNECOLOGICAL EXAMINATION 11/09/2008 GARIBAY DO, GABRIEL K 251.1 HYPERINSULINISM (EXOGENOUS) 11/09/2008 GARIBAY DO, GABRIEL K V72.3 GYNECOLOGICAL EXAMINATION 11/09/2008 GARIBAY DO, GABRIEL K 251.1 HYPERINSULINISM (EXOGENOUS) 11/09/2008 GARIBAY DO, GABRIEL K V72.3 GYNECOLOGICAL EXAMINATION 11/09/2008 GARIBAY DO, GABRIEL K 251.1 HYPERINSULINISM (EXOGENOUS) 11/09/2008 GARIBAY DO, GABRIEL K V72.3 GYNECOLOGICAL EXAMINATION 11/09/2008 GARIBAY DO, GABRIEL K 251.1 HYPERINSULINISM (EXOGENOUS) 11/09/2008 GARIBAY DO, GABRIEL K V72.3 GYNECOLOGICAL EXAMINATION 11/09/2008 GARIBAY DO, GABRIEL K 251.1 HYPERINSULINISM (EXOGENOUS) 11/09/2008 GARIBAY DO, GABRIEL K V72.3 GYNECOLOGICAL EXAMINATION 11/09/2008 GARIBAY DO, GABRIEL K 251.1 HYPERINSULINISM (EXOGENOUS) 11/09/2008 GARIBAY DO, GABRIEL K V72.3 GYNECOLOGICAL EXAMINATION 11/09/2008 GARIBAY DO, GABRIEL K 251.1 HYPERINSULINISM (EXOGENOUS) 11/09/2008 GARIBAY DO, GABRIEL K V72.3 GYNECOLOGICAL EXAMINATION 09/13/2009 GARIBAY DO, GABRIEL K 625.9 Pelvic Pain 09/13/2009 GARIBAY DO, GABRIEL K 789.00 Abdominal Pain 09/13/2009 GARIBAY DO, GABRIEL K 625.9 Pelvic Pain 09/13/2009 GARIBAY DO, GABRIEL K 789.00 Abdominal Pain 09/13/2009 GARIBAY DO, GABRIEL K 625.9 Pelvic Pain 09/13/2009 GARIBAY DO, GABRIEL K 789.00 Abdominal Pain 09/13/2009 GARIBAY DO, GABRIEL K 625.9 Pelvic Pain 09/13/2009 GARIBAY DO, GABRIEL K 789.00 Abdominal Pain 09/13/2009 625.9 Pelvic Pain 09/13/2009 789.00 Abdominal Pain 09/13/2009 625.9 Pelvic Pain 09/13/2009 789.00 Abdominal Pain 09/13/2009 625.9 Pelvic Pain 09/13/2009 789.00 Abdominal Pain 09/13/2009 GARIBAY DO, GABRIEL K 625.9 Pelvic Pain 09/13/2009 GARIBAY DO, GABRIEL K 789.00 Abdominal Pain 09/13/2009 GARIBAY DO, GABRIEL K 625.9 Pelvic Pain 09/13/2009 GARIBAY DO, GABRIEL K 789.00 Abdominal Pain 09/13/2009 GARIBAY DO, GABRIEL K 625.9 Pelvic Pain 09/13/2009 GARIBAY DO, GABRIEL K 789.00 Abdominal Pain 09/13/2009 GARIBAY DO, GABRIEL K 625.9 Pelvic Pain 09/13/2009 GARIBAY DO, GABRIEL K 789.00 Abdominal Pain 09/13/2009 GARIBAY DO, GABRIEL K 625.9 Pelvic Pain 09/13/2009 GARIBAY DO, GABRIEL K 789.00 Abdominal Pain 09/13/2009 GARIBAY DO, GABRIEL K 625.9 Pelvic Pain 09/13/2009 GARIBAY DO, GABRIEL K 789.00 Abdominal Pain 09/13/2009 GARIBAY DO, GABRIEL K 625.9 Pelvic Pain 09/13/2009 GARIBAY DO, GABRIEL K 789.00 Abdominal Pain 09/13/2009 GARIBAY DO, GABRIEL K 625.9 Pelvic Pain 09/13/2009 GARIBAY DO, GABRIEL K 789.00 Abdominal Pain 09/13/2009 GARIBAY DO, GABRIEL K 625.9 Pelvic Pain 09/13/2009 GARIBAY DO, GABRIEL K 789.00 Abdominal Pain 09/13/2009 GARIBAY DO, GABRIEL K 625.9 Pelvic Pain 09/13/2009 GARIBAY DO, GABRIEL K 789.00 Abdominal Pain 09/13/2009 GARIBAY DO, GABRIEL K 625.9 Pelvic Pain 09/13/2009 GARIBAY DO, GABRIEL K 789.00 Abdominal Pain 10/03/2009 GARIBAY DO, GABRIEL K 564.1 IRRITABLE BOWEL SYNDROME 10/03/2009 GARIBAY DO, GABRIEL K 564.1 IRRITABLE BOWEL SYNDROME 10/03/2009 GARIBAY DO, GABRIEL K 564.1 IRRITABLE BOWEL SYNDROME 10/03/2009 GARIBAY DO, GABRIEL K 564.1 IRRITABLE BOWEL SYNDROME 10/03/2009 564.1 IRRITABLE BOWEL SYNDROME 10/03/2009 564.1 IRRITABLE BOWEL SYNDROME 10/03/2009 564.1 IRRITABLE BOWEL SYNDROME 10/03/2009 GARIBAY DO, GABRIEL K 564.1 IRRITABLE BOWEL SYNDROME 10/03/2009 GARIBAY DO, GABRIEL K 564.1 IRRITABLE BOWEL SYNDROME 10/03/2009 GARIBAY DO, GABRIEL K 564.1 IRRITABLE BOWEL SYNDROME 10/03/2009 GARIBAY DO, GABRIEL K 564.1 IRRITABLE BOWEL SYNDROME 10/03/2009 GARIBAY DO, GABRIEL K 564.1 IRRITABLE BOWEL SYNDROME 10/03/2009 GARIBAY DO, GABRIEL K 564.1 IRRITABLE BOWEL SYNDROME 10/03/2009 GARIBAY DO, GABRIEL K 564.1 IRRITABLE BOWEL SYNDROME 10/03/2009 GARIBAY DO, GABRIEL K 564.1 IRRITABLE BOWEL SYNDROME 10/03/2009 GARIBAY DO, GABRIEL K 564.1 IRRITABLE BOWEL SYNDROME 10/03/2009 GARIBAY DO, GABRIEL K 564.1 IRRITABLE BOWEL SYNDROME 10/03/2009 GARIBAY DO, GABRIEL K 564.1 IRRITABLE BOWEL SYNDROME 01/02/2010 GARIBAY DO, GABRIEL K 465.9 Acute Upper Respiratory Infections Of Unspecified Site 01/02/2010 GARIBAY DO, GABRIEL K 465.9 Acute Upper Respiratory Infections Of Unspecified Site 01/02/2010 GARIBAY DO, GABRIEL K 465.9 Acute Upper Respiratory Infections Of Unspecified Site 01/02/2010 GARIBAY DO, GABRIEL K 465.9 Acute Upper Respiratory Infections Of Unspecified Site 01/02/2010 465.9 Acute Upper Respiratory Infections Of Unspecified Site 01/02/2010 465.9 Acute Upper Respiratory Infections Of Unspecified Site 01/02/2010 465.9 Acute Upper Respiratory Infections Of Unspecified Site 01/02/2010 GARIBAY DO, GABRIEL K 465.9 Acute Upper Respiratory Infections Of Unspecified Site 01/02/2010 GARIBAY DO, GABRIEL K 465.9 Acute Upper Respiratory Infections Of Unspecified Site 01/02/2010 GARIBAY DO, GABRIEL K 465.9 Acute Upper Respiratory Infections Of Unspecified Site 01/02/2010 GARIBAY DO, GABRIEL K 465.9 Acute Upper Respiratory Infections Of Unspecified Site 01/02/2010 GARIBAY DO, GABRIEL K 465.9 Acute Upper Respiratory Infections Of Unspecified Site 01/02/2010 GARIBAY DO, GABRIEL K 465.9 Acute Upper Respiratory Infections Of Unspecified Site 01/02/2010 GARIBAY DO, GABRIEL K 465.9 Acute Upper Respiratory Infections Of Unspecified Site 01/02/2010 GARIBAY DO, GABRIEL K 465.9 Acute Upper Respiratory Infections Of Unspecified Site 01/02/2010 GARIBAY DO, GABRIEL K 465.9 Acute Upper Respiratory Infections Of Unspecified Site 01/02/2010 GARIBAY DO, GABRIEL K 465.9 Acute Upper Respiratory Infections Of Unspecified Site 01/02/2010 GARIBAY DO, GABRIEL K 465.9 Acute Upper Respiratory Infections Of Unspecified Site 03/20/2010 GARIBAY DO, GABRIEL K 380.10 Infective Otitis Externa, Unspecified 03/20/2010 GARIBAY DO, GABRIEL K 380.4 IMPACTED CERUMEN 03/20/2010 GARIBAY DO, GABRIEL K 382.9 Unspecified Otitis Media 03/20/2010 GARIBAY DO, GABRIEL K 380.10 Infective Otitis Externa, Unspecified 03/20/2010 GARIBAY DO, GABRIEL K 380.4 IMPACTED CERUMEN 03/20/2010 GARIBAY DO, GABRIEL K 382.9 Unspecified Otitis Media 03/20/2010 GARIBAY DO, GABRIEL K 380.10 Infective Otitis Externa, Unspecified 03/20/2010 GARIBAY DO, GABRIEL K 380.4 IMPACTED CERUMEN 03/20/2010 GARIBAY DO, GABRIEL K 382.9 Unspecified Otitis Media 03/20/2010 GARIBAY DO, GABRIEL K 380.10 Infective Otitis Externa, Unspecified 03/20/2010 GARIBAY DO, GABRIEL K 380.4 Impacted Cerumen 03/20/2010 GARIBAY DO, GABRIEL K 382.9 Unspecified Otitis Media 03/20/2010 380.10 Infective Otitis Externa, Unspecified 03/20/2010 380.4 Impacted Cerumen 03/20/2010 382.9 Unspecified Otitis Media 03/20/2010 380.10 Infective Otitis Externa, Unspecified 03/20/2010 380.4 Impacted Cerumen 03/20/2010 382.9 Unspecified Otitis Media 03/20/2010 380.10 Infective Otitis Externa, Unspecified 03/20/2010 380.4 Impacted Cerumen 03/20/2010 382.9 Unspecified Otitis Media 03/20/2010 GARIBAY DO, GABRIEL K 380.10 Infective Otitis Externa, Unspecified 03/20/2010 GARIBAY DO, GABRIEL K 380.4 Impacted Cerumen 03/20/2010 GARIBAY DO, GABRIEL K 382.9 Unspecified Otitis Media 03/20/2010 GARIBAY DO, GABRIEL K 380.10 Infective Otitis Externa, Unspecified 03/20/2010 GARIBAY DO, GABRIEL K 380.4 Impacted Cerumen 03/20/2010 GARIBAY DO, GABRIEL K 382.9 Unspecified Otitis Media 03/20/2010 GARIBAY DO, GABRIEL K 380.10 Infective Otitis Externa, Unspecified 03/20/2010 GARIBAY DO, GABRIEL K 380.4 Impacted Cerumen 03/20/2010 GARIBAY DO, GABRIEL K 382.9 Unspecified Otitis Media 03/20/2010 GARIBAY DO, GABRIEL K 380.10 Infective Otitis Externa, Unspecified 03/20/2010 GARIBAY DO, GABRIEL K 380.4 Impacted Cerumen 03/20/2010 GARIBAY DO, GABRIEL K 382.9 Unspecified Otitis Media 03/20/2010 GARIBAY DO, GABRIEL K 380.10 Infective Otitis Externa, Unspecified 03/20/2010 GARIBAY DO, GABRIEL K 380.4 Impacted Cerumen 03/20/2010 GARIBAY DO, GABRIEL K 382.9 Unspecified Otitis Media 03/20/2010 GARIBAY DO, GABRIEL K 380.10 Infective Otitis Externa, Unspecified 03/20/2010 GARIBAY DO, GABRIEL K 380.4 Impacted Cerumen 03/20/2010 GARIBAY DO, GABRIEL K 382.9 Unspecified Otitis Media 03/20/2010 GARIBAY DO, GABRIEL K 380.10 Infective Otitis Externa, Unspecified 03/20/2010 GARIBAY DO, GABRIEL K 380.4 Impacted Cerumen 03/20/2010 GARIBAY DO, GABRIEL K 382.9 Unspecified Otitis Media 03/20/2010 GARIBAY DO, GABRIEL K 380.10 Infective Otitis Externa, Unspecified 03/20/2010 GARIBAY DO, GABRIEL K 380.4 Impacted Cerumen 03/20/2010 GARIBAY DO, GABRIEL K 382.9 Unspecified Otitis Media 03/20/2010 GARIBAY DO, GABRIEL K 380.10 Infective Otitis Externa, Unspecified 03/20/2010 GARIBAY DO, GABRIEL K 380.4 Impacted Cerumen 03/20/2010 GARIBAY DO, GABRIEL K 382.9 Unspecified Otitis Media 03/20/2010 GARIBAY DO, GABRIEL K 380.10 Infective Otitis Externa, Unspecified 03/20/2010 GARIBAY DO, GABRIEL K 380.4 Impacted Cerumen 03/20/2010 GARIBAY DO, GABRIEL K 382.9 Unspecified Otitis Media 03/20/2010 GARIBAY DO, GABRIEL K 380.10 Infective Otitis Externa, Unspecified 03/20/2010 GARIBAY DO, GABRIEL K 380.4 Impacted Cerumen 03/20/2010 GARIBAY DO, GABRIEL K 382.9 Unspecified Otitis Media 05/10/2010 GARIBAY DO, GABRIEL K 627.2 Vasomotor Symptoms 05/10/2010 GARIBAY DO, GABRIEL K 709.09 Other Dyschromia 05/10/2010 GARIBAY DO, GABRIEL K V18.0 FAMILY HISTORY OF DIABETES MELLITUS 05/10/2010 GARIBAY DO, GABRIEL K 627.2 Vasomotor Symptoms 05/10/2010 GARIBAY DO, GABRIEL K 709.09 Other Dyschromia 05/10/2010 GARIBAY DO, GABRIEL K V18.0 FAMILY HISTORY OF DIABETES MELLITUS 05/10/2010 GARIBAY DO, GABRIEL K 627.2 Vasomotor Symptoms 05/10/2010 GARIBAY DO, GABRIEL K 709.09 Other Dyschromia 05/10/2010 GARIBAY DO, GABRIEL K V18.0 FAMILY HISTORY OF DIABETES MELLITUS 05/10/2010 GARIBAY DO, GABRIEL K 627.2 Vasomotor Symptoms 05/10/2010 GARIBAY DO, GABRIEL K 709.09 Other Dyschromia 05/10/2010 GARIBAY DO, GABRIEL K V18.0 FAMILY HISTORY OF DIABETES MELLITUS 05/10/2010 627.2 Vasomotor Symptoms 05/10/2010 709.09 Other Dyschromia 05/10/2010 V18.0 FAMILY HISTORY OF DIABETES MELLITUS 05/10/2010 627.2 Vasomotor Symptoms 05/10/2010 709.09 Other Dyschromia 05/10/2010 V18.0 FAMILY HISTORY OF DIABETES MELLITUS 05/10/2010 627.2 Vasomotor Symptoms 05/10/2010 709.09 Other Dyschromia 05/10/2010 V18.0 FAMILY HISTORY OF DIABETES MELLITUS 05/10/2010 GARIBAY DO, GABRIEL K 627.2 Vasomotor Symptoms 05/10/2010 GARIBAY DO, GABRIEL K 709.09 Other Dyschromia 05/10/2010 GARIBAY DO, GABRIEL K V18.0 FAMILY HISTORY OF DIABETES MELLITUS 05/10/2010 GARIBAY DO, GABRIEL K 627.2 Vasomotor Symptoms 05/10/2010 GARIBAY DO, GABRIEL K 709.09 Other Dyschromia 05/10/2010 GARIBAY DO, GABRIEL K V18.0 FAMILY HISTORY OF DIABETES MELLITUS 05/10/2010 GARIBAY DO, GABRIEL K 627.2 Vasomotor Symptoms 05/10/2010 GARIBAY DO, GABRIEL K 709.09 Other Dyschromia 05/10/2010 GARIBAY DO, GABRIEL K V18.0 FAMILY HISTORY OF DIABETES MELLITUS 05/10/2010 GARIBAY DO, GABRIEL K 627.2 Vasomotor Symptoms 05/10/2010 GARIBAY DO, GABRIEL K 709.09 Other Dyschromia 05/10/2010 GARIBAY DO, GABRIEL K V18.0 FAMILY HISTORY OF DIABETES MELLITUS 05/10/2010 GARIBAY DO, GABRIEL K 627.2 Vasomotor Symptoms 05/10/2010 GARIBAY DO, GABRIEL K 709.09 Other Dyschromia 05/10/2010 GARIBAY DO, GABRIEL K V18.0 FAMILY HISTORY OF DIABETES MELLITUS 05/10/2010 GARIBAY DO, GABRIEL K 627.2 Vasomotor Symptoms 05/10/2010 GARIBAY DO, GABRIEL K 709.09 Other Dyschromia 05/10/2010 GARIBAY DO, GABRIEL K V18.0 FAMILY HISTORY OF DIABETES MELLITUS 05/10/2010 GARIBAY DO, GABRIEL K 627.2 Vasomotor Symptoms 05/10/2010 GARIBAY DO, GABRIEL K 709.09 Other Dyschromia 05/10/2010 GARIBAY DO, GABRIEL K V18.0 FAMILY HISTORY OF DIABETES MELLITUS 05/10/2010 GARIBAY DO, GABRIEL K 627.2 Vasomotor Symptoms 05/10/2010 GARIBAY DO, GABRIEL K 709.09 Other Dyschromia 05/10/2010 GARIBAY DO, GABRIEL K V18.0 FAMILY HISTORY OF DIABETES MELLITUS 05/10/2010 GARIBAY DO, GABRIEL K 627.2 Vasomotor Symptoms 05/10/2010 GARIBAY DO, GABRIEL K 709.09 Other Dyschromia 05/10/2010 GARIBAY DO, GABRIEL K V18.0 FAMILY HISTORY OF DIABETES MELLITUS 05/10/2010 GARIBAY DO, GABRIEL K 627.2 Vasomotor Symptoms 05/10/2010 GARIBAY DO, GABRIEL K 709.09 Other Dyschromia 05/10/2010 GARIBAY DO, GABRIEL K V18.0 FAMILY HISTORY OF DIABETES MELLITUS 05/10/2010 GARIBAY DO, GABRIEL K 627.2 Vasomotor Symptoms 05/10/2010 GARIBAY DO, GABRIEL K 709.09 Other Dyschromia 05/10/2010 GARIBAY DO, GABRIEL K V18.0 FAMILY HISTORY OF DIABETES MELLITUS 11/27/2010 GARIBAY DO, GABRIEL K 724.2 BACK PAIN, LOWER 11/27/2010 GARIBAY DO, GABRIEL K 724.2 BACK PAIN, LOWER 11/27/2010 GARIBAY DO, GABRIEL K 724.2 BACK PAIN, LOWER 11/27/2010 GARIABY DO, GABRIEL K 724.2 BACK PAIN, LOWER 11/27/2010 724.2 BACK PAIN, LOWER 11/27/2010 724.2 BACK PAIN, LOWER 11/27/2010 724.2 BACK PAIN, LOWER 11/27/2010 GARIBAY DO, GABRIEL K 724.2 BACK PAIN, LOWER 11/27/2010 GARIBAY DO, GABRIEL K 724.2 BACK PAIN, LOWER 11/27/2010 GARIBAY DO, GABRIEL K 724.2 BACK PAIN, LOWER 11/27/2010 GARIBAY DO, GABRIEL K 724.2 BACK PAIN, LOWER 11/27/2010 GARIBAY DO, GABRIEL K 724.2 BACK PAIN, LOWER 11/27/2010 GARIBAY DO, GABRIEL K 724.2 BACK PAIN, LOWER 11/27/2010 GARIBAY DO, GABRIEL K 724.2 BACK PAIN, LOWER 11/27/2010 GARIBAY DO, GABRIEL K 724.2 BACK PAIN, LOWER 11/27/2010 GARIBAY DO, GABRIEL K 724.2 BACK PAIN, LOWER 11/27/2010 GARIBAY DO, GABRIEL K 724.2 BACK PAIN, LOWER 11/27/2010 GARIBAY DO, GABRIEL K 724.2 BACK PAIN, LOWER 07/20/2011 GARIBAY DO, GABRIEL K V76.2 CERVICAL CANCER SCREENING (PAP SMEAR) 07/20/2011 GARIBAY DAILY ASHFORDA K V76.2 CERVICAL CANCER SCREENING (PAP SMEAR) 07/20/2011 GARIBAY DAILY ASHFORDA K V76.2 CERVICAL CANCER SCREENING (PAP SMEAR) 07/20/2011 GARIBAY DO, GABRIEL K V76.2 CERVICAL CANCER SCREENING (PAP SMEAR) 07/20/2011 V76.2 CERVICAL CANCER SCREENING (PAP SMEAR) 07/20/2011 V76.2 CERVICAL CANCER SCREENING (PAP SMEAR) 07/20/2011 V76.2 CERVICAL CANCER SCREENING (PAP SMEAR) 07/20/2011 GARIBAY DO GABRIEL K V76.2 CERVICAL CANCER SCREENING (PAP SMEAR) 07/20/2011 GARIBAY DO, GABRIEL K V76.2 CERVICAL CANCER SCREENING (PAP SMEAR) 07/20/2011 DAILY GARIBAY DOA K V76.2 CERVICAL CANCER SCREENING (PAP SMEAR) 07/20/2011 LANI ASHFORD, GABRIEL K V76.2 CERVICAL CANCER SCREENING (PAP SMEAR) 07/20/2011 DAILY GARIBAY DOA K V76.2 CERVICAL CANCER SCREENING (PAP SMEAR) 07/20/2011 GARIBAY DAILY ASHFORDA K V76.2 CERVICAL CANCER SCREENING (PAP SMEAR) 07/20/2011 GARIBAY , GABRIEL K V76.2 CERVICAL CANCER SCREENING (PAP SMEAR) 07/20/2011 GARIBAY DAILY ASHFORDA K V76.2 CERVICAL CANCER SCREENING (PAP SMEAR) 07/20/2011 GARIBAY DAILY ASHFORDA K V76.2 CERVICAL CANCER SCREENING (PAP SMEAR) 07/20/2011 GARIBAY DAILY ASHFORDA K V76.2 CERVICAL CANCER SCREENING (PAP SMEAR) 07/20/2011 DAILY GARIBAY DOA K V76.2 CERVICAL CANCER SCREENING (PAP SMEAR) 10/08/2011 GABRIEL GARIBAY DO K 300.00 AN ANXIETY UNSPEC 10/08/2011 GABRIEL GARIBAY DO K 311 DEPRESSIVE DISORDER NOS 10/08/2011 DAILY GARIBAY DOA K 300.00 AN ANXIETY UNSPEC 10/08/2011 GABRIEL GARIBAY DO K 311 DEPRESSIVE DISORDER NOS 10/08/2011 GABRIEL GARIBAY DO K 300.00 AN ANXIETY UNSPEC 10/08/2011 GABRIEL GARIBAY DO K 311 DEPRESSIVE DISORDER NOS 10/08/2011 GABRIEL GARIBAY DO K 300.00 AN ANXIETY UNSPEC 10/08/2011 GABRIEL GARIBAY DO K 311 DEPRESSIVE DISORDER NOS 10/08/2011 300.00 AN ANXIETY UNSPEC 10/08/2011 311 DEPRESSIVE DISORDER NOS 10/08/2011 300.00 AN ANXIETY UNSPEC 10/08/2011 311 DEPRESSIVE DISORDER NOS 10/08/2011 300.00 AN ANXIETY UNSPEC 10/08/2011 311 DEPRESSIVE DISORDER NOS 10/08/2011 GARIBAY DO, GABRIEL K 300.00 AN ANXIETY UNSPEC 10/08/2011 GARIBAY DO, GABRIEL K 311 DEPRESSIVE DISORDER NOS 10/08/2011 GARIBAY DO, GABRIEL K 300.00 AN ANXIETY UNSPEC 10/08/2011 GARIBAY DO, GABRIEL K 311 DEPRESSIVE DISORDER NOS 10/08/2011 GARIBAY DO, GABRIEL K 300.00 AN ANXIETY UNSPEC 10/08/2011 GARIBAY DO, GABRIEL K 311 DEPRESSIVE DISORDER NOS 10/08/2011 GARIBAY DO, GABRIEL K 300.00 AN ANXIETY UNSPEC 10/08/2011 GARIBAY DO, GABRIEL K 311 DEPRESSIVE DISORDER NOS 10/08/2011 GARIBAY DO, GABRIEL K 300.00 AN ANXIETY UNSPEC 10/08/2011 GARIBAY DO, GABRIEL K 311 DEPRESSIVE DISORDER NOS 10/08/2011 GARIBAY DO, GABRIEL K 300.00 AN ANXIETY UNSPEC 10/08/2011 GARIBAY DO, GABRIEL K 311 DEPRESSIVE DISORDER NOS 10/08/2011 GARIBAY DO, GABRIEL K 300.00 AN ANXIETY UNSPEC 10/08/2011 GARIBAY DO, GABRIEL K 311 DEPRESSIVE DISORDER NOS 10/08/2011 GARIBAY DO, GABRIEL K 300.00 AN ANXIETY UNSPEC 10/08/2011 GARIBAY DO, GABRIEL K 311 DEPRESSIVE DISORDER NOS 10/08/2011 GARIBAY DO, GABRIEL K 300.00 AN ANXIETY UNSPEC 10/08/2011 GARIBAY DO, GABRIEL K 311 DEPRESSIVE DISORDER NOS 10/08/2011 GARIBAY DO, GABRIEL K 300.00 AN ANXIETY UNSPEC 10/08/2011 GARIBAY DO, GABRIEL K 311 DEPRESSIVE DISORDER NOS 10/08/2011 GARIBAY DO, GABRIEL K 300.00 AN ANXIETY UNSPEC 10/08/2011 GARIBAY DO, GABRIEL K 311 DEPRESSIVE DISORDER NOS 11/01/2011 GARIBAY DO, GABRIEL K 461.9 Sinusitis Acute 11/01/2011 GARIBAY DO, GABRIEL K 729.5 Hand Pain 11/01/2011 GARIBAY DO, GABRIEL K V17.7 FAMILY HISTORY OF ARTHRITIS 11/01/2011 GARIBAY DO, GABRIEL K 461.9 Sinusitis Acute 11/01/2011 GARIBAY DO, GABRIEL K 729.5 Hand Pain 11/01/2011 GARIBAY DO, GABRIEL K V17.7 FAMILY HISTORY OF ARTHRITIS 11/01/2011 GARIBAY DO, GABRIEL K 461.9 Sinusitis Acute 11/01/2011 GARIBAY DO, GABRIEL K 729.5 Hand Pain 11/01/2011 GARIBAY DO, GABRIEL K V17.7 FAMILY HISTORY OF ARTHRITIS 11/01/2011 GARIBAY DO, GABRIEL K 461.9 Sinusitis Acute 11/01/2011 GARIBAY DO, GABRIEL K 729.5 Hand Pain 11/01/2011 GARIBAY DO, GABRIEL K V17.7 FAMILY HISTORY OF ARTHRITIS 11/01/2011 461.9 Sinusitis Acute 11/01/2011 729.5 Hand Pain 11/01/2011 V17.7 FAMILY HISTORY OF ARTHRITIS 11/01/2011 461.9 Sinusitis Acute 11/01/2011 729.5 Hand Pain 11/01/2011 V17.7 FAMILY HISTORY OF ARTHRITIS 11/01/2011 461.9 Sinusitis Acute 11/01/2011 729.5 Hand Pain 11/01/2011 V17.7 FAMILY HISTORY OF ARTHRITIS 11/01/2011 GARIBAY DO, GABRIEL K 461.9 Sinusitis Acute 11/01/2011 GARIBAY DO, GABRIEL K 729.5 Hand Pain 11/01/2011 GARIBAY DO, GABRIEL K V17.7 FAMILY HISTORY OF ARTHRITIS 11/01/2011 GARIBAY DO, GABRIEL K 461.9 Sinusitis Acute 11/01/2011 GARIBAY DO, GABRIEL K 729.5 Hand Pain 11/01/2011 GARIBAY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 ESSENTIAL (PRIMARY) HYPERTENSION 05/14/2016 GIANNI BARRERA [facility], ALI FACP CCDS Ot I47.1 SUPRAVENTRICULAR TACHYCARDIA 05/14/2016 GIANNI BARRERA [facility], ALI FACP CCDS Ot Z72.0 TOBACCO USE 05/29/2016 GIANNI BARRERA [facility], ALI FACP CCDS Ot I10 ESSENTIAL (PRIMARY) HYPERTENSION 05/29/2016 GIANNI BARRERA [facility], ALI FACP CCDS Ot I47.1 SUPRAVENTRICULAR TACHYCARDIA 05/29/2016 GIANNI BARRERA [facility], ALI FACP CCDS Ot Z72.0 TOBACCO USE 06/04/2016 MADL, YANA L GAMB CUTTER Ot N64.52 NIPPLE DISCHARGE 06/04/2016 MADL, YANA L GAMB CUTTER Ot R92.8 OTH ABN AND INCONCLUSIVE FINDINGS ON DX 06/05/2016 MADL, YANA L GAMB CUTTER Ot N64.52 NIPPLE DISCHARGE 06/05/2016 MADL, YANA L GAMB CUTTER Ot R92.8 OTH ABN AND INCONCLUSIVE FINDINGS ON DX 06/26/2016 JACINTO WHITAKER MD Ot F17.210 NICOTINE DEPENDENCE, CIGARETTES, UNCOMPL 06/26/2016 JACINTO WHITAKER MD, Ot I10 ESSENTIAL (PRIMARY) HYPERTENSION 06/26/2016 JACINTO WHITAKER MD Ot 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 06/26/2016 JACINTO WHITAKER MD Ot S99.921A UNSPECIFIED INJURY OF RIGHT FOOT, INITIA 06/26/2016 JACINTO WHITAKER MD Ot X58.XXXA EXPOSURE TO OTHER SPECIFIED FACTORS, INI 06/26/2016 JACINTO WHITAKER MD, Ot Y99.8 OTHER EXTERNAL CAUSE STATUS 06/26/2016 JACINTO WHITAKER MD Ot 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.82 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 06/26/2016 JACINTO WHITAKER MD, Ot Z79.899 OTHER 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) DRUG THERAPY 06/27/2016 ADELAIDE DO, RANJAN K Ot I10 ESSENTIAL (PRIMARY) HYPERTENSION 06/27/2016 ADELAIDE DO, RANJAN K Ot 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 06/27/2016 A[place]LAIDE DO, RANJAN K Ot X58.XXXA EXPOSURE TO OTHER SPECIFIED FACTORS, INI 06/27/2016 A[place]LAIDE DO, RANJAN K Ot Y99.8 OTHER EXTERNAL CAUSE STATUS 06/27/2016 ADELAIDE DO, RANJAN K Ot Z79.82 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 ASPIRIN 06/27/2016 ADELAIDE DO, RANJAN K Ot Z79.899 OTHER 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) DRUG THERAPY 06/27/2016 JULIANNE BARRERA, JACINTO Sweeney Ot F17.210 NICOTINE DEPENDENCE, CIGARETTES, UNCOMPL 06/27/2016 JACINTO WHITAKER MD Ot I10 ESSENTIAL (PRIMARY) HYPERTENSION 06/27/2016 JACINTO WHITAKER MD Ot 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 06/27/2016 JACINTO WHITAKER MD Ot S99.921A UNSPECIFIED INJURY OF RIGHT FOOT, INITIA 06/27/2016 JACINTO WHITAKER MD Ot X58.XXXA EXPOSURE TO OTHER SPECIFIED FACTORS, INI 06/27/2016 JACINTO WHITAKER MD Ot Y99.8 OTHER EXTERNAL CAUSE STATUS 06/27/2016 JACINTO WHITAKER MD Ot Z79.82 ALF (CURRENT) USE OF ASPIRIN 06/27/2016 JACINTO WHITAKER MD Ot Z79.899 OTHER 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) DRUG THERAPY 06/28/2016 ADELAIDE DO, RANJAN K Ot I10 ESSENTIAL (PRIMARY) HYPERTENSION 06/28/2016 ADELAIDE DO, RANJAN K Ot 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 06/28/2016 A[place]LAIDE DO, RANJAN K Ot X58.XXXA EXPOSURE TO OTHER SPECIFIED FACTORS, INI 06/28/2016 ADELAIDE DO, RANJAN K Ot Y99.8 OTHER EXTERNAL CAUSE STATUS 06/28/2016 ADELAIDE DO, RANJAN K Ot Z79.82 ALF (CURRENT) USE OF ASPIRIN 06/28/2016 RANJAN BRYSON DO Ot Z79.899 OTHER ALF (CURRENT) DRUG THERAPY 07/05/2016 MADL, YANA L GAMB CUTTER Ot N64.52 NIPPLE DISCHARGE 07/05/2016 MADL, YANA L GAMB CUTTER Ot R92.8 OTH ABN AND INCONCLUSIVE FINDINGS ON DX 07/08/2016 MADL, YANA L GAMB CUTTER Ot N64.52 NIPPLE DISCHARGE 07/08/2016 MADL, YANA L GAMB CUTTER Ot R92.8 OTH ABN AND INCONCLUSIVE FINDINGS ON DX 11/22/2016 GIANNI BARRERA FACC, ALI FACP CCDS Ot I10 ESSENTIAL (PRIMARY) HYPERTENSION 11/22/2016 GIANNI BARRERA FACC, ALI FACP CCDS Ot I47.1 SUPRAVENTRICULAR TACHYCARDIA 11/22/2016 GIANNI BARRERA FACC, ALI FACP CCDS Ot Z72.0 TOBACCO USE 04/19/2017 AMANDA CORTES MD Ot F17.210 NICOTINE DEPENDENCE, CIGARETTES, UNCOMPL 04/19/2017 AMANDA CORTES MD Ot F32.9 MAJOR DEPRESSIVE DISORDER, SINGLE EPISOD 04/19/2017 AMANDA CORTES MD Ot F41.9 ANXIETY DISORDER, UNSPECIFIED 04/19/2017 AMANDA CORTES MD Ot G89.29 OTHER CHRONIC PAIN 04/19/2017 AMANDA CORTES MD Ot I10 ESSENTIAL (PRIMARY) HYPERTENSION 04/19/2017 AMANDA CORTES MD Ot M19.90 UNSPECIFIED OSTEOARTHRITIS, UNSPECIFIED 04/19/2017 AMANDA CORTES MD Ot M54.9 DORSALGIA, UNSPECIFIED 04/19/2017 AMANDA CORTES MD Ot R00.2 PALPITATIONS 04/19/2017 AMANDA CORTES MD Ot R07.89 OTHER CHEST PAIN 04/19/2017 AMANDA CORTES MD Ot Z79.82 ALF (CURRENT) USE OF ASPIRIN 04/19/2017 AMANDA CORTES MD Ot Z90.710 ACQUIRED ABSENCE OF BOTH CERVIX AND UTER 04/19/2017 AMANDA CORTES MD Ot Z90.89 ACQUIRED ABSENCE OF OTHER ORGANS 04/19/2017 AMANDA CORTES MD Ot Z98.51 TUBAL LIGATION STATUS 04/22/2017 SOPHIA MD, AMANDA J Ot F17.210 NICOTINE DEPENDENCE, CIGARETTES, UNCOMPL 04/22/2017 AMANDA CORTES MD Ot F32.9 MAJOR DEPRESSIVE DISORDER, SINGLE EPISOD 04/22/2017 AMANDA CORTES MD Ot F41.9 ANXIETY DISORDER, UNSPECIFIED 04/22/2017 AMANDA CORTES MD Ot G89.29 OTHER CHRONIC PAIN 04/22/2017 AMANDA CORTES MD Ot I10 ESSENTIAL (PRIMARY) HYPERTENSION 04/22/2017 AMANDA CORTES MD Ot M19.90 UNSPECIFIED OSTEOARTHRITIS, UNSPECIFIED 04/22/2017 AMANDA CORTES MD Ot M54.9 DORSALGIA, UNSPECIFIED 04/22/2017 AMANDA CORTES MD Ot R00.2 PALPITATIONS 04/22/2017 AMANDA COTRES MD Ot R07.89 OTHER CHEST PAIN 04/22/2017 AMANDA CORTES MD Ot Z79.82 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 ASPIRIN 04/22/2017 AMANDA CORTES MD Ot Z90.710 ACQUIRED ABSENCE OF BOTH CERVIX AND UTER 04/22/2017 AMANDA CORTES MD Ot Z90.89 ACQUIRED ABSENCE OF OTHER ORGANS 04/22/2017 AMANDA CORTES MD Ot Z98.51 TUBAL LIGATION STATUS 04/25/2017 AMANDA CORTES MD Ot F17.210 NICOTINE DEPENDENCE, CIGARETTES, UNCOMPL 04/25/2017 AMANDA CORTES MD Ot F32.9 MAJOR DEPRESSIVE DISORDER, SINGLE EPISOD 04/25/2017 AMANDA CORTES MD Ot F41.9 ANXIETY DISORDER, UNSPECIFIED 04/25/2017 AMANDA CORTES MD Ot G89.29 OTHER CHRONIC PAIN 04/25/2017 AMANDA CORTES MD Ot I10 ESSENTIAL (PRIMARY) HYPERTENSION 04/25/2017 AMANDA CORTES MD Ot M19.90 UNSPECIFIED OSTEOARTHRITIS, UNSPECIFIED 04/25/2017 AMANDA CORTES MD Ot M54.9 DORSALGIA, UNSPECIFIED 04/25/2017 AMANDA CORTES MD J Ot R00.2 PALPITATIONS 04/25/2017 AMANDA CORTES MD J Ot R07.89 OTHER CHEST PAIN 04/25/2017 AMANDA CORTES MD Ot Z79.82 ALF (CURRENT) USE OF ASPIRIN 04/25/2017 AMANDA CORTES MD Ot Z90.710 ACQUIRED ABSENCE OF BOTH CERVIX AND UTER 04/25/2017 AMANDA CORTES MD Ot Z90.89 ACQUIRED ABSENCE OF OTHER ORGANS 04/25/2017 AMANDA CORTES MD Ot Z98.51 TUBAL LIGATION STATUS 11/06/2017 MADL, YANA L GAMB CUTTER Ot N64.52 NIPPLE DISCHARGE 11/06/2017 MADL, YANA L GAMB CUTTER Ot R92.8 OTH ABN AND INCONCLUSIVE FINDINGS ON DX 11/07/2017 ALICIA CLEMENS MD Ot N64.52 NIPPLE DISCHARGE 11/13/2017 ALICIA CLEMENS MD Ot N64.52 NIPPLE DISCHARGE 04/08/2018 MADL, YANA L GAMB CUTTER Ot N64.52 NIPPLE DISCHARGE 04/08/2018 MADL, YANA L GAMB CUTTER Ot R92.8 OTH ABN AND INCONCLUSIVE FINDINGS ON DX 04/08/2018 ALICIA CLEMENS MD Ot N64.52 NIPPLE DISCHARGE 04/08/2018 MARIA R BRAND Ot F17.210 NICOTINE DEPENDENCE, CIGARETTES, UNCOMPL 04/08/2018 MARIA R BRAND Ot F32.9 MAJOR DEPRESSIVE DISORDER, SINGLE EPISOD 04/08/2018 MARIA R BRAND Ot F41.9 ANXIETY DISORDER, UNSPECIFIED 04/08/2018 MARIA R BRAND Ot I10 ESSENTIAL (PRIMARY) HYPERTENSION 04/08/2018 MARIA R BRAND Ot J06.9 ACUTE UPPER RESPIRATORY INFECTION, UNSPE 04/08/2018 MARIA R BRAND Ot Z79.52 ALF (CURRENT) USE OF SYSTEMIC STER 04/08/2018 MARIA R BRAND Ot Z79.82 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 ASPIRIN 04/08/2018 MARIA R BRAND Ot Z87.448 PERSONAL HISTORY OF OTHER DISEASES OF UR 04/08/2018 MARIA R BRAND Ot Z87.59 PERSONAL HISTORY OF COMP OF PREG, CHLDBR 04/08/2018 MARIA R BRAND Ot Z88.5 ALLERGY STATUS TO NARCOTIC AGENT STATUS 04/08/2018 MARIA R BRAND Ot Z88.8 ALLERGY STATUS TO OTH DRUG/MEDS/BIOL SUB 04/08/2018 MARIA R BRAND Ot Z90.710 ACQUIRED ABSENCE OF BOTH CERVIX AND UTER 04/08/2018 BERNOT, MARIA R Ot Z90.89 ACQUIRED ABSENCE OF OTHER ORGANS 04/08/2018 VIVIANA BRANDIS Ot Z98.51 TUBAL LIGATION STATUS 04/10/2018 MARIA R BRAND Ot F17.210 NICOTINE DEPENDENCE, CIGARETTES, UNCOMPL 04/10/2018 MARIA R BRAND Ot F32.9 MAJOR DEPRESSIVE DISORDER, SINGLE EPISOD 04/10/2018 VIVIANA BRANDIS Ot F41.9 ANXIETY DISORDER, UNSPECIFIED 04/10/2018 VIVIANA BRANDIS Ot I10 ESSENTIAL (PRIMARY) HYPERTENSION 04/10/2018 VIVIANA BRANDIS Ot J06.9 ACUTE UPPER RESPIRATORY INFECTION, UNSPE 04/10/2018 VIVIANA BRANDIS Ot Z79.52 ALF (CURRENT) USE OF SYSTEMIC STER 04/10/2018 VIVIANA BRANDIS Ot Z79.82 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 ASPIRIN 04/10/2018 VIVIANA BRANDIS Ot Z87.448 PERSONAL HISTORY OF OTHER DISEASES OF UR 04/10/2018 MARIA R BRAND Ot Z87.59 PERSONAL HISTORY OF COMP OF PREG, CHLDBR 04/10/2018 VIVIANA BRANDIS Ot Z88.5 ALLERGY STATUS TO NARCOTIC AGENT STATUS 04/10/2018 VIVIANA BRANDIS Ot Z88.8 ALLERGY STATUS TO OTH DRUG/MEDS/BIOL SUB 04/10/2018 VIVIANA BRANDIS Ot Z90.710 ACQUIRED ABSENCE OF BOTH CERVIX AND UTER 04/10/2018 VIVIANA BRANDIS Ot Z90.89 ACQUIRED ABSENCE OF OTHER ORGANS 04/10/2018 MARIA R BRAND Ot Z98.51 TUBAL LIGATION STATUS 04/14/2018 MARIA R BRAND Ot F17.210 NICOTINE DEPENDENCE, CIGARETTES, UNCOMPL 04/14/2018 MARIA R BRAND Ot F32.9 MAJOR DEPRESSIVE DISORDER, SINGLE EPISOD 04/14/2018 VIVIANA BRANDIS Ot F41.9 ANXIETY DISORDER, UNSPECIFIED 04/14/2018 VIVIANA BRANDIS Ot I10 ESSENTIAL (PRIMARY) HYPERTENSION 04/14/2018 MARIA R BRAND Ot J06.9 ACUTE UPPER RESPIRATORY INFECTION, UNSPE 04/14/2018 VIVIANA BRANDIS Ot Z79.52 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 SYSTEMIC STER 04/14/2018 VIVIANA BRANDIS Ot Z79.82 ALF (CURRENT) USE OF ASPIRIN 04/14/2018 VIVIANA BRANDIS Ot Z87.448 PERSONAL HISTORY OF OTHER DISEASES OF UR 04/14/2018 MARIA R BRAND Ot Z87.59 PERSONAL HISTORY OF COMP OF PREG, CHLDBR 04/14/2018 MARIA R Ot Z88.5 ALLERGY STATUS TO NARCOTIC AGENT STATUS 04/14/2018 VIVIANA BRANDIS Ot Z88.8 ALLERGY STATUS TO OTH DRUG/MEDS/BIOL SUB 04/14/2018 VIVIANA BRANDIS Ot Z90.710 ACQUIRED ABSENCE OF BOTH CERVIX AND UTER 04/14/2018 MARIA R Ot Z90.89 ACQUIRED ABSENCE OF OTHER ORGANS 04/14/2018 MARIA R BRAND Ot Z98.51 TUBAL LIGATION STATUS 06/13/2018 Graciela Mercado A 842.19 OTHER HAND SPRAIN 06/13/2018 Graciela Mercado A S63.601A UNSPECIFIED SPRAIN OF RIGHT THUMB, INITIAL ENCOUNTER 07/13/2018 MABELLYANA GAMB CUTTER Ot N64.52 NIPPLE DISCHARGE 07/13/2018 YANA PHELPS GAMB CUTTER Ot R92.8 OTH ABN AND INCONCLUSIVE FINDINGS ON DX 07/13/2018 SARATH BARRERA, ALICIA Broussard Ot N64.52 NIPPLE DISCHARGE 07/14/2018 SHARRON MCKEON, JACINTO Edwards Ot 611.79 SYMPTOMS IN BREAST NEC 08/28/2018 PALOMO ALARCON LANGUAGE PATHOLOGIST Ot M54.5 LOW BACK PAIN 08/28/2018 PALOMO ALARCON LANGUAGE PATHOLOGIST Ot M54.5 LOW BACK PAIN 09/02/2018 PALOMO ALARCON LANGUAGE PATHOLOGIST Ot M54.5 LOW BACK PAIN 09/24/2018 PALOMO ALARCON LANGUAGE PATHOLOGIST Ot M54.5 LOW BACK PAIN Procedures Code Description [place] [address] UA W/ CULTURE IF INDICATED 08/20/2012 29186 ROUTINE VENIPUNCTURE 12/10/2012 88245 CMP 12/10/2012 00556 VITAMIN D 25-HYDROXY (D2,D3 , TOTAL) 12/10/2012 79141 VIT B 12 12/10/2012 56158 FOLATE 12/10/2012 59551 TSH 12/10/2012 93954 CBC 12/10/2012 IRGROUP IRON GROUP (Iron,TIBC, Ferritin) 12/10/2012 77051 ROUTINE VENIPUNCTURE 03/18/2013 92776 IRON SERUM 03/18/2013 88083 VITAMIN D 25-HYDROXY (D2,D3 , TOTAL) 03/18/2013 28224 XRAY ANKLE R COMP MIN, 3 VIEWS 07/27/2013 43201 US BREAST ULTRASOUND, LEFT 09/10/2013 51818 MAMMOGRAM DX, LORA 09/10/2013 20573 MRI BREAST LEFT 10/07/2013 06171 XRAY CHEST 2 VIEW 01/03/2014 PODIATRY ALINA CARLSON 01/03/2014 81321 ROUTINE VENIPUNCTURE 08/15/2014 23147 CRP 08/16/2014 54892 RA FACTOR 08/16/2014 ANAANA TEE ANALYZER (SCREEN) 08/16/2014 ORTHOPEDI RUSTY ACEVEDO 10/10/2014 96528 ROUTINE VENIPUNCTURE 01/06/2015 62783 CBC 01/06/2015 0708231 GFR CALC (RESULT ONLY) 01/06/2015 82979 CMP 01/06/2015 Results There is no data. Encounters ACCT No. Visit Date/Time Discharge Status Pt. Type Provider Facility Loc./Unit Complaint [id number] 01/06/2015 13:59:00 01/06/2015 23:59:59 CLS Outpatient GARIBAY DOGABRIEL [id number] 10/10/2014 16:13:00 10/10/2014 23:59:59 CLS Outpatient GABRIEL GARIBAY DO [id number] 08/15/2014 17:28:00 08/15/2014 23:59:59 CLS Outpatient GABRIEL GARIBAY DO [id number] 04/04/2014 16:19:00 04/04/2014 23:59:59 CLS Outpatient GABRIEL GARIBAY DO [id number] 01/03/2014 13:13:00 01/03/2014 23:59:59 CLS Outpatient GARIBAY DOGABRIEL [id number] 01/03/2014 13:13:00 01/03/2014 23:59:59 CLS Outpatient GABRIEL GARIBAY DO [id number] 10/07/2013 10:42:00 10/07/2013 23:59:59 CLS Outpatient GABRIEL GARIBAY DO [id number] 09/10/2013 11:44:00 09/10/2013 23:59:59 CLS Outpatient GABRIEL GARIBAY DO [id number] 08/05/2013 11:31:00 08/05/2013 23:59:59 CLS Outpatient GABRIEL GARIBAY DO [id number] 07/27/2013 10:43:00 07/27/2013 23:59:59 CLS Outpatient GABRIEL GARIBAY DO [id number] 07/02/2013 14:55:00 07/02/2013 23:59:59 CLS Outpatient GABRIEL GARIBAY DO [id number] 12/28/2012 10:03:00 12/28/2012 23:59:59 CLS Outpatient GABRIEL GARIBAY DO [id number] 12/10/2012 10:02:00 12/10/2012 23:59:59 CLS Outpatient GABRIEL GARIBAY DO [id number] 08/20/2012 08:55:00 08/20/2012 23:59:59 [place] [id number] 07/30/2012 12:01:00 07/30/2012 23:59:59 CLS Outpatient GABRIEL GARIBAY DO [id number] 03/18/2013 09:20:00 Document Registration [id number] 03/11/2013 09:57:00 Document Registration [id number] 01/26/2013 10:31:00 Document Registration [id number] 06/13/2018 00:28:00 06/13/2018 01:05:00 DIS Outpatient MercadoSanazGraciela Aarti [facility] ER [id number] 02/22/2015 01:52:11 ACT Document Registration [id number] 08/27/2018 10:33:00 09/24/2018 09:19:00 DIS Outpatient PALOMO ALARCON APRN [facility] REHAB LBP [id number] 04/08/2018 19:55:00 04/08/2018 21:22:00 DIS Emergency MARIA R BRAND [facility] ER HURTS TO BREATHE [id number] 11/06/2017 09:27:00 11/06/2017 23:59:59 CLS Outpatient ALICIA CLEMENS MD [facility] RAD NIPPLE DISCHARGE [id number] 04/19/2017 15:35:00 04/19/2017 23:59:59 CLS Emergency AMANDA CORTES MD [facility] ER DIAMOND DOBBINS [id number] 07/04/2016 12:23:00 07/04/2016 23:59:59 CLS Outpatient MADLYANA GAMB CUTTER [facility] RAD DISCHARGE OF BREAST [id number] 06/27/2016 00:22:00 06/27/2016 01:21:00 DIS Emergency RANJAN BRYSON DO [facility] ER RT FOOT INJURY-PAINFUL [id number] 06/26/2016 15:27:00 06/26/2016 16:24:00 DIS Emergency JACINTO WHITAKER MD [facility] ER RIGHT FOOT INJ [id number] 06/04/2016 09:08:00 06/04/2016 23:59:59 CLS Outpatient MADLYANA GAMB CUTTER [facility] RAD DISCHARGE OF BREAST, ABNORMAL BREAST US [id number] 05/08/2016 11:11:00 05/08/2016 23:59:59 CLS Outpatient GIANNI BARRERA FACC, MITZY THOMAS CCDS [facility] CARD PSVT,HTN [id number] 03/22/2016 07:24:00 03/22/2016 23:59:59 CLS Outpatient MADLYANA GAMB CUTTER [facility] RAD [id number] 02/29/2016 00:09:00 02/29/2016 03:41:00 DIS Emergency BURTON BUCKNER MD [facility] ER [id number] 02/22/2016 08:24:00 02/22/2016 23:59:59 CLS Outpatient JOAQUIN WASHINGTON MD [facility] RAD [id number] 09/11/2015 16:26:00 09/11/2015 18:26:00 DIS Emergency CARMEN NGUYEN MD [facility] ER [id number] 02/09/2015 16:06:00 02/28/2015 14:42:00 DIS Outpatient ALINA ALMENDAREZ MD [facility] [id number] 02/21/2015 20:30:00 02/21/2015 23:45:00 DIS Emergency RANJAN BRYSON DO [facility] ER [id number] 12/30/2014 22:32:00 12/30/2014 23:40:00 DIS Emergency RANJAN BRYSON DO [facility] ER [id number] 09/06/2014 23:44:00 09/07/2014 00:39:00 DIS Emergency RANJAN BRYSON DO [facility] ER [id number] 06/26/2014 18:52:00 06/26/2014 20:40:00 DIS Emergency FELIX ROQUE DO [facility] ER [id number] 05/02/2014 21:05:00 05/02/2014 22:14:00 DIS Emergency MARVIN JARA [facility] ER [id number] 04/16/2014 16:38:00 04/16/2014 17:36:00 DIS Emergency FELIX ROQUE DO [facility] ER [id number] 03/18/2014 19:56:00 03/18/2014 21:34:00 DIS Emergency [id number] 09/23/2013 13:56:00 09/23/2013 23:59:59 [facility] Outpatient JACINTO ARAGON [facility] RAD NIPPLE DISCHARGE [id number] 09/07/2013 22:21:00 09/07/2013 23:30:00 DIS Emergency JACINTO WHITAKER MD [facility] ER L BREAST PAIN; L ARM PAIN; NO INJ [id number] 07/27/2013 00:22:00 07/27/2013 01:31:00 DIS Emergency ADELAIDE ASHFORD RANJAN Ray [facility] ER RT ANKLE INJURY [id number] 07/09/2013 02:31:00 07/09/2013 04:00:00 DIS Emergency LESLEY SEAY MD [facility] ER POSSIBLE ALLERGIC RXN [id number] 03/17/2013 00:40:00 03/17/2013 01:23:00 DIS Emergency LESLEY SEAY MD [facility] ER EDEMA IN RT LEG [id number] 01/25/2013 22:01:00 01/26/2013 00:03:00 DIS Emergency MARVIN JARA [facility] ER RETAINING FLUID, SOB [id number] 01/14/2013 12:14:00 01/14/2013 14:41:00 DIS Emergency [id number] 07/14/2018 10:33:00 Document Registration
--- NOTE | 2018-11-14 11:34 | ED Cough/URI ---
General Chief Complaint: Cough/Cold/Flu Symptoms Stated Complaint: COUGHING, BODY ACHES, FEVER Nursing Triage Note: PATIENT HERE FOR COMPLAINTS OF A COUGH AND FEVERS SINCE FRIDAY. SHE STATES THAT SHE ACTUALLY WENT TO [facility] ON FRIDAY AND THEY DIAGNOSED HER WITH BRONCHITIS WHICH SHE DOES NOT BELIEVE AND THEY GAVE HER AN INHALER AND ANTIBIOTICS. SHE IS HERE TODAY BECAUSE SHE IS NOT FEELING ANY BETTER AND SHE IS SUPPOSED TO HAVE CARPAL TUNNEL SURGERY THIS WEEK. NOTE, PATIENT IS CURRENTLY AFEBRILE. Sepsis Screen: No Definite Risk Source: patient, family (daughter) Exam Limitations: no limitations History of Present Illness Date Seen by Provider: Nov 14, 2018 Time Seen by Provider: 11:34 Initial Comments 38-year-old female patient presents to the emergency department complaints of fever, cough, body aches, and headache beginning while at work. Patient was seen at [facility] on and diagnosed with bronchitis. She was given Augmentin x3 days and an albuterol inhaler as needed. Denies any improvement with the Augmentin. Patient is scheduled to have carpal tunnel release surgery on Friday by Dr. Fox. Patient does report taking 1000 mg of Tylenol and 800 mg of ibuprofen just prior to coming to the emergency department. Timing/Duration: other () Severity/Quality: productive cough (clear productive cough) Prior Episodes/Possible Cause: no prior episodes Modifying Factors: Worse With Antibiotics (no improvement with antibiotics), Worse With Coughing Allergies and Home Medications Allergies Coded Allergies: oxycodone (Unverified Allergy, Mild, 01/24/09) venlafaxine (Verified Allergy, Mild, 09/07/13) Home Medications Aspirin 81 Mg Tablet.dr, 81 MG PO DAILY, (Reported) Azithromycin 250 Mg Tablet, 250 MG PO UD Prescribed by: MARIA R BRAND on 04/08/182104 Hydrocodone Bit/Acetaminophen 1 Each Tablet, 1-2 EACH PO Q6H PRN for PAIN Prescribed by: JACINTO HERRMANN on 06/26/16 1614 Oseltamivir Phosphate 75 Mg Capsule, 75 MG PO BID Prescribed by: MARVIN BAEZ on 11/14/18 1150 Prednisone 10 Mg Tab.ds.pk, 10 MG PO UD Prescribed by: MARIA R BRAND on 04/08/182104 Patient Home Medication List Home Medication List Reviewed: Yes Review of Systems Review of Systems Constitutional: see HPI, chills, fever, malaise EENTM: see HPI, nose congestion, throat pain; No ear pain, No hoarseness, No throat swelling Respiratory: see HPI, cough; No dyspnea on exertion; phlegm; No short of breath , No stridor, No wheezing Cardiovascular: no symptoms reported Gastrointestinal: No abdominal pain, No constipation, No diarrhea, No nausea, No vomiting Genitourinary: no symptoms reported Musculoskeletal: other (generalized body aches) Skin: no symptoms reported Psychiatric/Neurological: Headache (improved with Tylenol and ibuprofen) All Other Systems Reviewed Negative Unless Noted: Yes (Negative excepted noted.) Past Nyufppd-Egavwa-Gwqjhw Hx Past Med/Social Hx: Reviewed Nursing Past Med/Soc Hx Patient Social History Drug of Choice: PAST HX MARIJUANA Type Used: Cigarettes 2nd Hand Smoke Exposure: Yes Recent Foreign Travel: No Contact w/Someone Who Travel: No Recent Infectious Disease Expo: No Recent Hopitalizations: No Immunizations Up To Date Tetanus Booster (TDap): Unknown Date of Influenza Vaccine: Jul 06, 2014 Seasonal Allergies Seasonal Allergies: No Past Medical History Surgeries: Yes (CARPAL TUNNEL, heart cath, ablation) Adenoidectomy, Appendectomy, Cardiac, Section, Hysterectomy, Oophorectomy, Orthopedic, Tonsillectomy, Tubal Ligation Respiratory: No Tuberculosis Cardiac: Yes (ABLATION for SVT) Chronic Edema/Swelling, Hypertension Neurological: No Female 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 Disorders: Endometriosis 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 0oz. 83.587682wh; 37.78 BMI Method:Stated General Appearance: WD/WN, no apparent distress Eyes: Bilateral Eye Normal Inspection, Bilateral Eye PERRL, Bilateral Eye EOMI HEENT: PERRL/EOMI, pharyngeal erythema, other (positive nasal congestion and rhinorrhea.) Neck: full range of motion, supple, lymphadenopathy (R) (tender anterior cervical lymphadenopathy), lymphadenopathy (L) (tender anterior cervical lymphadenopathy) Respiratory: lungs clear, normal breath sounds, no respiratory distress, no accessory muscle use Cardiovascular: normal peripheral pulses, regular rate, rhythm, no edema, no murmur Gastrointestinal: soft Extremities: no pedal edema, normal capillary refill Neurologic/Psychiatric: alert, normal mood/affect, oriented x 3 Skin: normal color, warm/dry Progress/Results/Core Measures Suspected Sepsis Recent Fever Within 48 Hours: No Infection Criteria Present: None New/Unexplained Altered Menta: No Sepsis Screen: No Definite Risk SIRS Temperature:98.7 Pulse: 88 Respiratory Rate: 18 Blood Pressure 104 /67 Mean: 79 Results/Orders Micro Results Microbiology 11/14/18 Influenza Types A,B Antigen (BRUCE) - Final, Complete Vital Signs/I&O 11/14/18 11:03 Temp 98.7 Pulse 88 Resp 18 B/P (MAP) 104/67 (79) Pulse Ox 96 O2 Delivery Room Air Capillary Refill : Less Than 3 Seconds Blood Pressure Mean: 79 Departure Communication (Admissions) Patient seen and evaluated. Plan for discharge to home with a Tamiflu prescription. Impression Primary Impression: Influenza A Disposition: 01 HOME, SELF-CARE Condition: Improved Departure-Patient Inst. Decision time for Depature: 11:49 Referrals: PALOMO ALARCON APRN (PCP) Primary Care Physician [facility] (Family) Primary Care Physician RUSTY FOX MD Patient Instructions: Flu, Adult (DC) Add. Discharge Instructions: All discharge instructions reviewed with patient and/or family. Voiced understanding. Medications as instructed. Tylenol extra strength over-the- counter as directed for headache or pain. Ibuprofen 800 mg by mouth every 8 hours as needed for pain, headache, or fever. Push fluids. Rest. Over-the- counter decongestants and antihistamines as needed for symptoms. Follow-up with your family practitioner for recheck as an outpatient if needed. Contact Dr. Dr. Fox's office on Friday for possible need to reschedule your carpal tunnel surgery this week. Return to the emergency department for worsened symptoms or any other concerns. Scripts Oseltamivir Phosphate (Oseltamivir Phosphate) 75 Mg Capsule 75 MG PO BID, #10 CAP 0 Refills Prov: MARVIN BAEZ 11/14/18 Work/School Note: Work Release Form Date Seen in the Emergency Department: Nov 14, 2018 Return to Work: Nov 16, 2018 Restrictions: Return-No Fever (24hrs) Copy Copies To 1: RUSTY FOX MD Copies To 2: GABRIEL GARIBAY GRETCHEN L PA Nov 14, 2018 11:34
[2018-11-14] MEDS ORDERED: OSEL75CA15 PO (11:50)
[2018-11-14 12:05] VITALS: BP 104/67
== END 2018-11-14 12:05 | disposition home or self-care (01) ==
LOC: EDUNIT# 10:23 → ER 10:25
DX: J10.1 Influenza due to other identified influenza virus with other respiratory manifestations (principal); I10 Essential (primary) hypertension; F41.9 Anxiety disorder, unspecified; F32.9 Major depressive disorder, single episode, unspecified; Z87.448 Personal history of other diseases of urinary system; Z98.890 Other specified postprocedural states; Z88.5 Allergy status to narcotic agent; Z88.8 Allergy status to other drugs, medicaments and biological substances; Z79.82 Long term (current) use of aspirin; Z79.52 Long term (current) use of systemic steroids; Z77.22 Contact with and (suspected) exposure to environmental tobacco smoke (acute) (chronic); Z95.9 Presence of cardiac and vascular implant and graft, unspecified; Z90.89 Acquired absence of other organs; Z90.49 Acquired absence of other specified parts of digestive tract; Z90.710 Acquired absence of both cervix and uterus; Z98.51 Tubal ligation status; Z87.09 Personal history of other diseases of the respiratory system
CPT/HCPCS: 87804

== ENCOUNTER 2019-04-11 18:33 | Emergency (ER) | payer SELFPAY ==
[~2019-04-11] VITALS: Ht 154.9 cm; Wt 91.2 kg
[~2019-04-11 18:33] MED LIST changes: +OSEL75CA15 PO
--- OUTSIDE RECORDS SUMMARY | 2019-04-11 18:37 | XMS REPORT | Clinical Summary ---
Author Author [facility] Organization [facility] Address Unknown Phone Unavailable Care Team Providers Care Bike Designer Name Role Phone Sue Lawson EMPLOYMENT SERVICE SPECIALIST Unavailable Outpatient, Radiologist Unavailable Unavailable Antonia Devries PCP Sissy Bowen MD 6 Source Comments Some departments are not documenting in the electronic medical record. If you d o not see the information that you expected, contact Release of Information in [facility] [employer] Information Management department at [phone] for further assistan ce in locating additional records.[facility] Allergies Comments Active Allergy Reactions Severity Noted [...] tachycardia) 06/21/2016 SVT (supraventricular tachycardia) 06/12/2016 Overview: 6/9/16 TSH normal. CTA Chest - no pulm [...] Breast Imaging: Mammogram: Bilateral diagnostic mammograms 09/23/13 ([facility]) for nipple discharge, showed scattered fibroglandular densities. There were no abnormal findings in the left breast. In the right breast, there was an asymmetry projecting behind the nipple on MLO view. Compression views of this asymmetry showed no underlying lesion with the appearance of background scattered fibroglandular densities. Bilateral diagnostic mammograms 02/22/16 ([facility]) showed scattered fibroglandular densities. No abnormal findings were seen. Ultrasound: Bilateral breast ultrasound 09/23/13 ([facility]) showed no abnormal findings. BIRADS 1. Right breast ultrasound 02/22/16 ([facility]) showed no abnormal findings; BIRADS 1. [...] Sissy Bowen Surgeon: Dr. Moran Immunizations Name Administration Dates Next Due Flu Vaccine=>1 YO 06/22/2014 (Historical) [...] Used Tobacco Cessation: Ready to Quit: Yes Drinks/Week oz/Week Comments Alcohol Use occasionally Yes Sex Assigned at Date Recorded Not on file Industry Job Start Date Occupation Not on file Not on file Not on file Travel End Travel History Travel Start No recent travel history available. Last Filed Vital Signs Reading Time Taken Comments Vital Sign 112/52 06/21/2016 9:47 AM CDT Blood Pressure 80 06/21/2016 9:47 AM CDT Pulse 36.9 C (98.5 F) 06/21/2016 9:47 AM CDT Temperature 16 03/07/2016 10:32 AM CDT Respiratory Rate 95% 06/21/2016 9:47 AM CDT Oxygen Saturation - - Inhaled Oxygen Concentration 96.6 kg (212 lb 15.4 oz) 06/20/2016 8:45 AM CDT Weight 154.9 cm (5' 1") 06/20/2016 8:45 AM CDT Height 40.24 06/20/2016 8:45 AM CDT Body Mass Index Plan of Treatment Health Maintenance Due Date Last Done Comments PHYSICAL (COMPREHENSIVE) 1985 EXAM HIV SCREENING 1993 DTAP/TDAP VACCINES ( - 1996 Tdap) CERVICAL CANCER SCREENING 2008 BREAST CANCER SCREENING 2018 INFLUENZA VACCINE 06/22/2019 06/22/2014 Results Not on filefrom Last 3 Months Insurance Type Payer Benefit Subscriber ID Effective Phone Address Plan / Dates Group Medicaid [facility] MEDICAID [facility] xxxxxxxxxxx [id number] [employer] [place] Advance Directives Patient Security Rep Explanation Type Date Recorded Advance 06/20/2016 8:19 AM Directive/DPOA Date Inactivated Comments Code Status Date Activated 06/21/2016 8:29 PM Full Code 06/20/2016 8:33 AM Provider has discussed Code Status No, more discussion w/Patient or Family? needed
--- OUTSIDE RECORDS SUMMARY | 2019-04-11 18:41 | XMS REPORT | Continuity of Care Document ---
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 01/26/2013 00:03:00 DIS Emergency MARVIN JARA [facility] ER RETAINING FLUID, SOB [id number] 01/14/2013 12:14:00 01/14/2013 14:41:00 DIS Emergency [id number] 07/14/2018 10:33:00 Document Registration
--- NOTE | 2019-04-11 18:51 | NUR ---
pt here by self. pt alert gcs 15. pt c/o " retaining fluids". motions hands from head to toe and says " im swelling from here to there". pt denies chest and abd pain. denies dyspnea and no acute sighns of dyspnea noted. lungs equal cta bilaterally. abd w/o pain with palpation. minor swelling of legs noted bilaterally. pt relates being on a diuretic. tele applied by nm shows sr 60. bp machine is 132/84 p ox r/a is 99. done cyrus pt at 1857.
--- NOTE | 2019-04-11 18:57 | ED Respiratory ---
General Chief Complaint: Respiratory Problems Stated Complaint: RETAINING FLUID/SOB Nursing Triage Note: pt states she is retaining fluid. she has a 15 lb weight gain. She isnt allowed to take diuretics Source: patient Exam Limitations: no limitations History of Present Illness Date Seen by Provider: Apr 11, 2019 Time Seen by Provider: 18:55 Initial Comments To ER with reports of "retaining fluid". This is been an ongoing issue for her, she is had ablation for SVT. She was formerly on diuretics, however Dr. Farr took her off of them stating that he didn't want her to lose too much potassium. She states that she is now swollen and feels like she is moving under water. She went and got a Lasix from her friend earlier this week "just to make it through the work day". Timing/Duration: just prior to arrival Severity: moderate Prior Episodes/Possible Cause: no prior episodes Associated Symptoms: shortness of breath Allergies and Home Medications Allergies Coded Allergies: oxycodone (Unverified Allergy, Mild, 01/24/09) venlafaxine (Verified Allergy, Mild, 09/07/13) Home Medications Aspirin 81 Mg Tablet.dr, 81 MG PO DAILY, (Reported) Azithromycin 250 Mg Tablet, 250 MG PO UD Prescribed by: MARIA R BRAND on 04/08/182104 Hydrocodone Bit/Acetaminophen 1 Each Tablet, 1-2 EACH PO Q6H PRN for PAIN Prescribed by: JACINTO HERRMANN on 06/26/16 1614 Oseltamivir Phosphate 75 Mg Capsule, 75 MG PO BID Prescribed by: MARVIN BAEZ on 11/14/18 1150 Prednisone 10 Mg Tab.ds.pk, 10 MG PO UD Prescribed by: MARIA R BRAND on 04/08/182104 Patient Home Medication List Home Medication List Reviewed: Yes Review of Systems Review of Systems Constitutional: see HPI EENTM: see HPI Respiratory: no symptoms reported Cardiovascular: no symptoms reported Genitourinary: no symptoms reported Musculoskeletal: no symptoms reported Skin: no symptoms reported Psychiatric/Neurological: No Symptoms Reported Hematologic/Lymphatic: No Symptoms Reported Past Fvauqhy-Hxcbbs-Hwvvnd Hx Patient Social History Drug of Choice: PAST HX MARIJUANA Type Used: Cigarettes 2nd Hand Smoke Exposure: Yes Recent Foreign Travel: No Contact w/Someone Who Travel: No Recent Infectious Disease Expo: No Recent Hopitalizations: No Immunizations Up To Date Tetanus Booster (TDap): Unknown Date of Influenza Vaccine: Jul 06, 2014 Seasonal Allergies Seasonal Allergies: No Past Medical History Surgeries: Yes (CARPAL TUNNEL, heart cath, ablation) Adenoidectomy, Appendectomy, Cardiac, Section, Hysterectomy, Oophorectomy, Orthopedic, Tonsillectomy, Tubal Ligation Respiratory: No Tuberculosis Cardiac: Yes (ABLATION for SVT) Chronic Edema/Swelling, Hypertension Neurological: No Female 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 Disorders: Endometriosis OR DIRECTOR History: Hysterectomy Genitourinary: Yes Bladder Infection Gastrointestinal: No Musculoskeletal: Yes (RIGHT CARPAL TUNNEL) Arthritis, Chronic Back Pain Endocrine: No HEENT: Yes Hearing Impairment: Hard of Hearing Cancer: No Psychosocial: Yes Anxiety, Depression Integumentary: No Blood Disorders: No Family Medical History No Pertinent Family Hx Physical Exam Vital Signs - First Documented 04/11/19 18:40 Temp 98.5 Pulse 63 Resp 18 B/P (MAP) 147/103 (118) Pulse Ox 100 O2 Delivery Room Air Capillary Refill : Less Than 3 Seconds Height: 5'1.00" Weight: 201lbs. 0oz. 91.247523hk; 37.78 BMI Method:Actual General Appearance: WD/WN, no apparent distress Eyes: Bilateral Eye Normal Inspection, Bilateral Eye PERRL, Bilateral Eye EOMI HEENT: PERRL/EOMI, normal ENT inspection Neck: non-tender, full range of motion Respiratory: no respiratory distress, no accessory muscle use Cardiovascular: regular rate, rhythm, no murmur Gastrointestinal: normal bowel sounds, non tender, soft Neurologic/Psychiatric: alert, normal mood/affect, oriented x 3 Skin: normal color, warm/dry Progress/Results/Core Measures Suspected Sepsis Recent Fever Within 48 Hours: No Infection Criteria Present: None New/Unexplained Altered Menta: No Sepsis Screen: No Definite Risk SIRS Temperature:98.5 Pulse: 63 Respiratory Rate: 18 Laboratory Tests 04/11/19 19:13: White Blood Count 8.8 Blood Pressure 147 /103 Mean: 118 Laboratory Tests 04/11/19 19:13: Creatinine 0.70, Platelet Count 305, Total Bilirubin 0.2 Results/Orders Lab Results Laboratory Tests Test 04/11/19 18:52 04/11/19 19:13 Range/Units Urine Color YELLOW Urine Clarity CLEAR Urine pH 6 5-9 Urine Specific [place] 1.020 1.016-1.022 Urine Protein NEGATIVE NEGATIVE Urine Glucose (UA) NEGATIVE NEGATIVE Urine Ketones NEGATIVE NEGATIVE Urine Nitrite NEGATIVE NEGATIVE Urine Bilirubin NEGATIVE NEGATIVE Urine Urobilinogen NORMAL NORMAL MG/DL Urine Leukocyte Esterase NEGATIVE NEGATIVE Urine RBC (Auto) NEGATIVE NEGATIVE Urine RBC NONE /HPF Urine WBC RARE /HPF Urine Squamous Epithelial Cells 25-50 H /HPF Urine Crystals NONE /LPF Urine Bacteria TRACE /HPF Urine Casts NONE /LPF Urine Mucus SMALL H /LPF Urine Culture Indicated NO White Blood Count 8.8 4.3-11.0 10^3/uL Red Blood Count 4.80 4.35-5.85 10^6/uL Hemoglobin 14.3 11.5-16.0 G/DL Hematocrit 41 35-52 % Mean Corpuscular Volume 85 80-99 FL Mean Corpuscular Hemoglobin 30 25-34 PG Mean Corpuscular Hemoglobin Concent 35 32-36 G/DL Red Cell Distribution Width 13.0 10.0-14.5 % Platelet Count 305 130-400 10^3/uL Mean Platelet Volume 9.3 7.4-10.4 FL Neutrophils (%) (Auto) 50 42-75 % Lymphocytes (%) (Auto) 38 12-44 % Monocytes (%) (Auto) 9 0-12 % Eosinophils (%) (Auto) 3 0-10 % Basophils (%) (Auto) 0 0-10 % Neutrophils # (Auto) 4.4 1.8-7.8 X 10^3 Lymphocytes # (Auto) 3.3 1.0-4.0 X 10^3 Monocytes # (Auto) 0.8 0.0-1.0 X 10^3 Eosinophils # (Auto) 0.2 0.0-0.3 10^3/uL Basophils # (Auto) 0.0 0.0-0.1 10^3/uL D-Dimer 0.55 H 0.00-0.49 UG/ML Sodium Level 140 135-145 MMOL/L Potassium Level 3.9 3.6-5.0 MMOL/L Chloride Level 106 98-107 MMOL/L Carbon Dioxide Level 25 21-32 MMOL/L Anion Gap 9 5-14 MMOL/L Blood Urea Nitrogen 10 7-18 MG/DL Creatinine 0.70 0.60-1.30 MG/DL Estimat Glomerular Filtration Rate > 60 BUN/Creatinine Ratio 14 Glucose Level 85 70-105 MG/DL Calcium Level 9.4 8.5-10.1 MG/DL Corrected Calcium 9.2 8.5-10.1 MG/DL Total Bilirubin 0.2 0.1-1.0 MG/DL Aspartate Amino Transf (AST/SGOT) 17 5-34 U/L Alanine Aminotransferase (ALT/SGPT) 18 0-55 U/L Alkaline Phosphatase 121 40-136 U/L Troponin I < 0.028 <0.028 NG/ML B-Type Natriuretic Peptide 20.0 <100.0 PG/ML Total Protein 7.1 6.4-8.2 GM/DL Albumin 4.2 3.2-4.5 GM/DL Thyroid Stimulating Hormone (TSH) 0.46 0.35-4.94 UIU/ML Serum Test, Qualitative NEGATIVE NEGATIVE My Orders Orders - WILLIAM JUAN APRN Cbc With Automated Diff (04/11/19 18:38) Comprehensive Metabolic Panel (04/11/19 18:38) Ua Culture If Indicated (04/11/19 18:38) Hcg,Qualitative Serum (04/11/19 18:38) Fibrin Degradation Products (04/11/19 18:38) Troponin I (04/11/19 18:38) BNP (04/11/19 18:38) Thyroid Stimulating Hormone (04/11/19 18:38) Ekg Tracing (04/11/19 18:38) Ed Iv/Invasive Line Start (04/11/19 18:38) Chest 1 View, Ap/Pa Only (04/11/19 18:38) Ct Angio Chest W (04/11/19 19:58) Iohexol Injection (Omnipaque 350 Mg/Ml 1 (04/11/19 20:15) Received Contrast (Hold Metformin- Contr (04/11/19 20:15) Ns (Ivpb) (Sodium Chloride 0.9% Ivpb Bag (04/11/19 20:15) Medications Given in ED Current Medications Medications Dose Ordered Sig/Macho Route Start Time Stop Time Status Last Admin Dose Admin Iohexol 100 ml ONCE ONCE IV 04/11/19 20:15 04/11/19 20:16 DC 04/11/19 20:40 125 ML Sodium Chloride 100 ml ONCE ONCE IV 04/11/19 20:15 04/11/19 20:16 DC 04/11/19 20:41 80 ML Vital Signs/I&O 04/11/19 18:40 Temp 98.5 Pulse 63 Resp 18 B/P (MAP) 147/103 (118) Pulse Ox 100 O2 Delivery Room Air Capillary Refill : Less Than 3 Seconds Blood Pressure Mean: 118 Departure Impression Primary Impression: Fatigue Qualified Codes: R53.83 - Other fatigue Additional Impression: Dyspnea Qualified Codes: R06.09 - Other forms of dyspnea Disposition: 01 HOME, SELF-CARE Condition: Stable Departure-Patient Inst. Decision time for Depature: 20:58 Referrals: [facility] (PCP/Family) Primary Care Physician Patient Instructions: Fatigue (DC), Shortness of Breath (Dyspnea) Add. Discharge Instructions: Call your family doctor tomorrow to make an appointment to be seen for follow- up. Return to ER for any concerns the meantime. All discharge instructions reviewed with patient and/or family. Voiced understanding. WILLIAM JUAN APRN Apr 11, 2019 18:57
--- NOTE | 2019-04-11 18:57 | NUR ---
ua to lab by
[2019-04-11 19:02] LABS: BILIRUBIN,URINE NEGATIVE (NEGATIVE); CLARITY,URINE CLEAR; COLOR,URINE YELLOW; GLUCOSE, URINE (UA) NEGATIVE (NEGATIVE); KETONES,URINE NEGATIVE (NEGATIVE); LEUKOCYTE ESTERASE ,URINE NEGATIVE (NEGATIVE); NITRITE,URINE NEGATIVE (NEGATIVE); PH,URINE 6 (5-9); PROTEIN,URINE NEGATIVE (NEGATIVE); UROBILINOGEN,URINE NORMAL (NORMAL)
--- NOTE | 2019-04-11 19:06 | NUR ---
ekg by me and to by me
[2019-04-11 19:08] LABS: BACTERIA,URINE TRACE /HPF; SQUAMOUS EPITHELIAL CELL,UR 25-50 /HPF; WBC,URINE RARE /HPF
[2019-04-11 19:20] LABS: BASOPHILS % (AUTO) 0 % (0-10); EOSINOPHILS # (AUTO) 0.2 10^3/uL (0.0-0.3); EOSINOPHILS % (AUTO) 3 % (0-10); HEMATOCRIT 41 % (35-52); HEMOGLOBIN 14.3 G/DL (11.5-16.0); LYMPHOCYTES # (AUTO) 3.3 X 10^3 (1.0-4.0); LYMPHOCYTES % (AUTO) 38 % (12-44); MEAN CORPUSCULAR HEMOGLOBIN 30 PG (25-34); MEAN CORPUSCULAR HGB CONC 35 G/DL (32-36); MEAN CORPUSCULAR VOLUME 85 FL (80-99); MEAN PLATELET VOLUME 9.3 FL (7.4-10.4); MONOCYTES # (AUTO) 0.8 X 10^3 (0.0-1.0); MONOCYTES % (AUTO) 9 % (0-12); NEUTROPHILS # (AUTO) 4.4 X 10^3 (1.8-7.8); NEUTROPHILS % (AUTO) 50 % (42-75); PLATELET COUNT 305 10^3/uL (130-400); WHITE BLOOD COUNT 8.8 10^3/uL (4.3-11.0)
--- NOTE | 2019-04-11 19:28 | NUR ---
pt in room using cell nad.
[2019-04-11 19:44] LABS: ALANINE AMINOTRANSFERASE 18 U/L (0-55); ALBUMIN 4.2 GM/DL (3.2-4.5); ALKALINE PHOSPHATASE 121 U/L (40-136); BILIRUBIN,TOTAL 0.2 MG/DL (0.1-1.0); BUN/CREATININE RATIO 14; CALCIUM 9.4 MG/DL (8.5-10.1); CARBON DIOXIDE 25 MMOL/L (21-32); GFR ESTIMATED > 60; GLUCOSE 85 MG/DL (70-105); TOTAL PROTEIN 7.1 GM/DL (6.4-8.2)
[2019-04-11 20:10] LABS: CHLORIDE 106 MMOL/L (98-107); POTASSIUM 3.9 MMOL/L (3.6-5.0); SODIUM 140 MMOL/L (135-145)
[2019-04-11] MEDS ORDERED: HOLD METFORMIN - RECEIVED CONTRAST 20 ML VIAL IV SCH (20:15)
[2019-04-11] MEDS ORDERED: IOHEXOL 350 MG/ML 100 ML (OMNIPAQUE 350) VIAL IV ONE (20:15)
[2019-04-11] MEDS ORDERED: NS 100 ML (IVPB) BAG IV ONE (20:15)
--- NOTE | 2019-04-11 20:41 | NUR ---
PT REMAINS ALERT GCS 15. " FIANCE" IN ROOM NOW. PT DENIES CHEST PAIN AND DYSPNEA AND NO ACUTE SIGHNS OF DYSPNEA NOTED. TELE SHOWS SB 56. BP MACHINE IS 124/89 AUSC HR 52 REG AUSC RESP 16 NORMAL RECHECK TEMP IS 97.7 P OX R/A IS 97. AWAITING CT RESULT.
--- NOTE | 2019-04-11 21:38 | Diagnostic Imaging Report ---
PROCEDURE: CT angiography of the chest with contrast. TECHNIQUE: Multiple contiguous axial images were obtained through the chest after uneventful bolus administration of intravenous contrast. 2D reconstructed CTA MIP acquisitions were also performed. Auto Exposure Controls were utilized during the CT exam to meet ALARA standards for radiation dose reduction. INDICATION: Shortness of breath. Evaluate for pulmonary embolism. COMPARISONS: CTA chest performed on 02/29/2016. FINDINGS: CT ANGIOGRAM: Evaluation is slightly limited secondary to respiratory motion and streak artifact caused by dense contrast bolus. There is no evidence of pulmonary embolism. Normal caliber pulmonary arteries. No acute aortic abnormality seen on this study performed without cardiac gating. TRACHEA AND MAIN BRONCHI: Patent without evidence of tracheal or endobronchial lesion. LUNGS AND PLEURA: Mild subsegmental atelectasis. No consolidation or pulmonary mass. No pleural effusion or pneumothorax. MEDIASTINUM AND LILIYA: Visualized thyroid gland is normal. No mediastinal or hilar lymphadenopathy. Esophagus is nondistended. HEART AND VESSELS: Heart is normal in size. No pericardial effusion. Thoracic aorta is nonaneurysmal. DIAPHRAGM AND UPPER ABDOMEN: A subcentimeter focus of low attenuation in the posterior aspect of the upper pole of the right kidney is too small to characterize, but is not significantly changed and likely represents a cyst. The diaphragm and visualized upper abdomen are otherwise unremarkable. CHEST WALL: Unremarkable. BONES: No acute osseous abnormality. IMPRESSION: No evidence of pulmonary embolism. No acute chest disease. Dictated by: Dictated on workstation # [id number]
[2019-04-11 22:14] VITALS: BP 163/99
--- NOTE | 2019-04-11 22:14 | NUR ---
PT SIGHNED D/C PAPER. THEN WAS HEADING OUT THE DOOR W/O D/C PAPERS. PT APPARANTELY DID NOT WANT TO LISTEN TO D/C PAPERS SHE SAID " NO HE CAN GET THEM FOR ME" IN THE [place] THAT IS HERE WITH HER. I JUST HANDED HIM THE D/C PAPERS. THEY LEFT . NO SCRIPTS GIVEN. PT LEFT AMBULATORY WITH COLETTE. IV D/CD BY ME PRIOR TO D/C.
--- NOTE | 2019-04-11 23:00 | Diagnostic Imaging Report ---
Examination: Chest, single frontal view Indication: Shortness of breath. Retaining fluid. Comparison: Multiple priors, most recent performed on 04/08/2018. Findings: The lungs are clear and the pulmonary vasculature is normal. No pneumothorax or large pleural effusion. The cardiomediastinal silhouette is unchanged allowing for differences in technique. No acute osseous abnormalities appreciated. Impression: No radiographic evidence of acute chest disease. No significant change from prior. Dictated by: Dictated on workstation # [id number]
== END 2019-04-11 22:14 | disposition home or self-care (01) ==
LOC: EDUNIT# 18:33 → ER 18:34
DX: R53.83 Other fatigue (principal); R06.00 Dyspnea, unspecified; I10 Essential (primary) hypertension; F41.9 Anxiety disorder, unspecified; F32.9 Major depressive disorder, single episode, unspecified; Z88.5 Allergy status to narcotic agent; Z88.8 Allergy status to other drugs, medicaments and biological substances; Z79.82 Long term (current) use of aspirin; Z77.22 Contact with and (suspected) exposure to environmental tobacco smoke (acute) (chronic); Z90.49 Acquired absence of other specified parts of digestive tract; Z90.710 Acquired absence of both cervix and uterus; Z90.89 Acquired absence of other organs; Z98.51 Tubal ligation status
CPT/HCPCS: 36415; 71045; 71275; 80053; 81000; 83880; 84443; 84484; 84703; 85025; 85379; 93005

== ENCOUNTER → 2019-10-06 | Outpatient (CLI) | payer SELFPAY ==
[~2019-10-06] MED LIST changes: -TRAM50TA2; +TRM50T
--- NOTE | 2019-10-06 10:35 | Diagnostic Imaging Report ---
PROCEDURE: MRI lumbar spine. TECHNIQUE: Multiplanar, multisequence MRI of the lumbar spine was performed without contrast. INDICATION: Chronic low back pain. COMPARISON: Correlation is made with prior MRI of the lumbar spine from 03/05/2012. FINDINGS: Curvature and alignment of the lumbar spine is normal. Vertebral body heights are maintained. The marrow signal intensity is unremarkable. No geographic marrow lesion or acute compression fracture is seen. There is fairly normal height and signal intensity to the lumbar intervertebral discs. The conus is unremarkable at the L2 level. T12-L1: The central canal and neuroforamina are widely patent. L1-L2: The central canal and neuroforamina are widely patent. L2-L3: Central canal and neuroforamina are patent. L3-L4: Central canal is patent. There appears to be some [id number] narrowing of the neuroforamina bilaterally. L4-L5: Central canal is patent. There is moderate bilateral neuroforaminal narrowing. L5-S1: Degenerative facet changes are noted. Central canal is patent. There is moderate bilateral neuroforaminal narrowing. Paraspinous tissues are unremarkable. IMPRESSION: There is [id number] neuroforaminal narrowing at multiple levels, described level by level above, as well as lower lumbar facet arthropathy. No focal disc protrusion or central canal stenosis is detected. No acute compression fracture is detected. Dictated by: Dictated on workstation # [id number]
== END ==
LOC: RAD 09:06
PROVIDERS: ATTEND Physician Assistant
DX: M47.817 Spondylosis without myelopathy or radiculopathy, lumbosacral region (principal); M48.07 Spinal stenosis, lumbosacral region
CPT/HCPCS: 72148

== ENCOUNTER 2021-08-01 11:05 | Emergency (ER) | payer SELFPAY ==
[~2021-08-01] VITALS: Ht 154 cm; Wt 97.0 kg
[2021-08-01 11:25] LABS: BASOPHILS # (AUTO) 0.1 10^3/uL (0.0-0.1); BASOPHILS % (AUTO) 1 % (0-10); EOSINOPHILS # (AUTO) 0.3 10^3/uL (0.0-0.3); EOSINOPHILS % (AUTO) 3 % (0-10); HEMATOCRIT 46 % (35-52); HEMOGLOBIN 15.6 g/dL (11.5-16.0); LYMPHOCYTES # (AUTO) 3.7 10^3/uL (1.0-4.0); LYMPHOCYTES % (AUTO) 34 % (12-44); MEAN CORPUSCULAR HEMOGLOBIN 30 pg (25-34); MEAN CORPUSCULAR HGB CONC 34 g/dL (32-36); MEAN CORPUSCULAR VOLUME 87 fL (80-99); MEAN PLATELET VOLUME 9.2 fL (9.0-12.2); MONOCYTES # (AUTO) 1.1 10^3/uL (0.0-1.0); MONOCYTES % (AUTO) 11 % (0-12); NEUTROPHILS # (AUTO) 5.6 10^3/uL (1.8-7.8); NEUTROPHILS % (AUTO) 52 % (42-75); PLATELET COUNT 357 10^3/uL (130-400); WHITE BLOOD COUNT 10.8 10^3/uL (4.3-11.0)
--- NOTE | 2021-08-01 11:25 | ED General ---
General Chief Complaint: Dizziness/Syncope Stated Complaint: DIZZY SHAKY Nursing Triage Note: ARRIVED VIA WC TO ROOM 07 ET HYPERVENTALATING. STATES SHE STARTED FEELING WORSE YESTERDAY BUT HAS NOT FELT RIGHT SINCE STARTING LISINOPRIL. Source of Information: Patient Exam Limitations: No Limitations History of Present Illness Date Seen by Provider: Aug 01, 2021 Time Seen by Provider: 11:23 Initial Comments To ER with reports of shakiness and dizziness. She began feeling this way yesterday and symptoms have been intermittent since then. She believes is related to the newly started lisinopril medication. 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 Timing/Duration: 1-2 Days Severity: Moderate Associated Systoms: Denies Symptoms Allergies and Home Medications Allergies Coded Allergies: oxycodone (Unverified Allergy, Mild, 01/24/09) venlafaxine (Verified Allergy, Mild, 09/07/13) Patient Home Medication List Home Medication List Reviewed: Yes Aspirin (Aspir 81) 81 Mg Tablet.dr, 81 MG PO DAILY, (Reported) Entered as Reported by: DEBRA BRAND on 06/26/16 1541 Azithromycin (Azithromycin) 250 Mg Tablet, 250 MG PO UD Prescribed by: MARIA R BRAND on 04/08/182104 Celecoxib (Celecoxib) 200 Mg Capsule, (Reported) Entered as Reported by: KATHY MARMOLEJO on 04/19/17 1556 Hydrocodone Bit/Acetaminophen (Lortab 5 Mg Tablet) 1 Each Tablet, 1-2 EACH PO Q6H PRN for PAIN Prescribed by: JACINTO HERRMANN on 06/26/16 1614 Oseltamivir Phosphate (Oseltamivir Phosphate) 75 Mg Capsule, 75 MG PO BID Prescribed by: MARVIN BAEZ on 11/14/18 1150 Prednisone (Prednisone) 10 Mg Tab.ds.pk, 10 MG PO UD Prescribed by: MARIA R BRAND on 04/08/182104 Review of Systems Review of Systems Constitutional: see HPI EENTM: see HPI Respiratory: no symptoms reported Cardiovascular: no symptoms reported Genitourinary: no symptoms reported Musculoskeletal: no symptoms reported Skin: no symptoms reported Psychiatric/Neurological: No Symptoms Reported Hematologic/Lymphatic: No Symptoms Reported Immunological/Allergic: no symptoms reported Past Aiekrts-Bkalsh-Ldgugo Hx Immunizations Up To Date Tetanus Booster (TDap): Unknown Seasonal Allergies Seasonal Allergies: No Past Medical History Surgeries: Yes (CARPAL TUNNEL, heart cath, ablation) Adenoidectomy, Appendectomy, Cardiac, Section, Hysterectomy, Oophorectomy, Orthopedic, Tonsillectomy, Tubal Ligation Respiratory: No Tuberculosis Cardiac: Yes (ABLATION for SVT) Chronic Edema/Swelling, Hypertension Neurological: No Female 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 Disorders: 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 0oz. 91.514238qu; 40.00 BMI Method:Actual General Appearance: No Apparent Distress, WD/WN, Other (Show some hyperventilating on arrival. As conversation progressed she became more calm with slowed breathing.) Eyes: Bilateral Eye Normal Inspection, Bilateral Eye PERRL HEENT: PERRL/EOMI, TMs Normal Neck: Full Range of Motion, Normal Inspection Respiratory: No Accessory Muscle Use, No Respiratory Distress Cardiovascular: Regular Rate, Rhythm, Normal Peripheral Pulses Gastrointestinal: Normal Bowel Sounds, Non Tender, Soft Extremity: Normal Capillary Refill, Normal Inspection Neurologic/Psychiatric: Alert, Oriented x3 Skin: Normal Color, Warm/Dry Progress/Results/Core Measures Suspected Sepsis SIRS Temperature: Pulse: 78 Respiratory Rate: 16 Laboratory Tests 08/01/21 11:18: White Blood Count 10.8 Blood Pressure 161 /96 Mean: 117 Laboratory Tests 08/01/21 11:18: Creatinine 0.73, Platelet Count 357, Total Bilirubin 0.3 Results/Orders Lab Results Laboratory Tests Test 08/01/21 11:18 Range/Units White Blood Count 10.8 4.3-11.0 10^3/uL Red Blood Count 5.26 H 3.80-5.11 10^6/uL Hemoglobin 15.6 11.5-16.0 g/dL Hematocrit 46 35-52 % Mean Corpuscular Volume 87 80-99 fL Mean Corpuscular Hemoglobin 30 25-34 pg Mean Corpuscular Hemoglobin Concent 34 32-36 g/dL Red Cell Distribution Width 12.2 10.0-14.5 % Platelet Count 357 130-400 10^3/uL Mean Platelet Volume 9.2 9.0-12.2 fL Immature Granulocyte % (Auto) 0 % Neutrophils (%) (Auto) 52 42-75 % Lymphocytes (%) (Auto) 34 12-44 % Monocytes (%) (Auto) 11 0-12 % Eosinophils (%) (Auto) 3 0-10 % Basophils (%) (Auto) 1 0-10 % Neutrophils # (Auto) 5.6 1.8-7.8 10^3/uL Lymphocytes # (Auto) 3.7 1.0-4.0 10^3/uL Monocytes # (Auto) 1.1 H 0.0-1.0 10^3/uL Eosinophils # (Auto) 0.3 0.0-0.3 10^3/uL Basophils # (Auto) 0.1 0.0-0.1 10^3/uL Immature Granulocyte # (Auto) 0.0 0.0-0.1 10^3/uL Urine Color YELLOW Urine Clarity CLEAR Urine pH 6.5 5-9 Urine Specific [place] 1.015 L 1.016-1.022 Urine Protein NEGATIVE NEGATIVE Urine Glucose (UA) NEGATIVE NEGATIVE Urine Ketones NEGATIVE NEGATIVE Urine Nitrite NEGATIVE NEGATIVE Urine Bilirubin NEGATIVE NEGATIVE Urine Urobilinogen 0.2 < = 1.0 MG/DL Urine Leukocyte Esterase NEGATIVE NEGATIVE Urine RBC (Auto) NEGATIVE NEGATIVE Urine RBC NONE /HPF Urine WBC NONE /HPF Urine Squamous Epithelial Cells 0-2 /HPF Urine Crystals NONE /LPF Urine Bacteria NEGATIVE /HPF Urine Casts NONE /LPF Urine Mucus NEGATIVE /LPF Urine Culture Indicated NO Sodium Level 137 135-145 MMOL/L Potassium Level 4.1 3.6-5.0 MMOL/L Chloride Level 102 98-107 MMOL/L Carbon Dioxide Level 21 21-32 MMOL/L Anion Gap 14 5-14 MMOL/L Blood Urea Nitrogen 11 7-18 MG/DL Creatinine 0.73 0.60-1.30 MG/DL Estimat Glomerular Filtration Rate 87 BUN/Creatinine Ratio 15 Glucose Level 113 H 70-105 MG/DL Calcium Level 9.8 8.5-10.1 MG/DL Corrected Calcium 9.4 8.5-10.1 MG/DL Magnesium Level 2.1 1.6-2.4 MG/DL Total Bilirubin 0.3 0.1-1.0 MG/DL Aspartate Amino Transf (AST/SGOT) 27 5-34 U/L Alanine Aminotransferase (ALT/SGPT) 26 0-55 U/L Alkaline Phosphatase 122 40-136 U/L Total Protein 7.9 6.4-8.2 GM/DL Albumin 4.5 3.2-4.5 GM/DL My Orders Orders - WILLIAM JUAN APRN Cbc With Automated Diff (08/01/21 11:20) Comprehensive Metabolic Panel (08/01/21 11:20) Ua Culture If Indicated (08/01/21 11:20) Magnesium (08/01/21 11:20) Ed Iv/Invasive Line Start (08/01/21 11:20) Lorazepam Injection (Ativan Injection) (08/01/21 11:30) Medications Given in ED Current Medications Medications Dose Ordered Sig/Macho Route Start Time Stop Time Status Last Admin Dose Admin Lorazepam 0.5 mg ONCE PRN IVP 08/01/21 11:30 08/01/21 11:30 0.5 MG Vital Signs/I&O 08/01/21 11:20 Temp 36.0 Pulse 78 Resp 16 B/P (MAP) 161/96 (117) Pulse Ox 100 O2 Delivery Room Air Capillary Refill : Less Than 3 Seconds Blood Pressure Mean: 117 Departure Impression Primary Impression: Anxiety Disposition: 01 HOME, SELF-CARE Condition: Stable Departure-Patient Inst. Decision time for Depature: 11:56 Referrals: CHINTAN WOMACK (PCP/Family) Primary Care Physician Patient Instructions: Anxiety, Adult ED Add. Discharge Instructions: 1. REturn to ER for any concerns 2. Follow up with your doctor this week 3. Stop the lisinopril/hctz. All discharge instructions reviewed with patient and/or family. Voiced understanding. Scripts Lorazepam (Ativan) 0.5 Mg Tablet 0.5 MG PO BID PRN for ANXIETY for 7 Days, #10 TAB Prov: WILLIAM JUAN APRN 08/01/21 Work/School Note: Work Release Form Date Seen in the Emergency Department: Aug 01, 2021 Return to Work: Aug 02, 2021 WILLIAM JUAN APRN Aug 01, 2021 11:25
[2021-08-01] MEDS ORDERED: LORazepam INJ 2 MG/ML (ATIVAN) VIAL IVP PRN (11:30)
[2021-08-01 11:34] LABS: ALBUMIN 4.5 GM/DL (3.2-4.5)
[2021-08-01 11:35] LABS: POTASSIUM 4.1 MMOL/L (3.6-5.0)
[2021-08-01 11:36] LABS: CALCIUM 9.8 MG/DL (8.5-10.1)
[2021-08-01 11:37] LABS: TOTAL PROTEIN 7.9 GM/DL (6.4-8.2)
[2021-08-01 11:39] LABS: BILIRUBIN,TOTAL 0.3 MG/DL (0.1-1.0)
[2021-08-01 11:41] LABS: CREATININE SERUM 0.73 MG/DL (0.60-1.30)
[2021-08-01 11:44] LABS: MAGNESIUM 2.1 MG/DL (1.6-2.4)
[2021-08-01 11:58] LABS: BILIRUBIN,URINE NEGATIVE (NEGATIVE); CLARITY,URINE CLEAR; COLOR,URINE YELLOW; GLUCOSE, URINE (UA) NEGATIVE (NEGATIVE); KETONES,URINE NEGATIVE (NEGATIVE); LEUKOCYTE ESTERASE ,URINE NEGATIVE (NEGATIVE); NITRITE,URINE NEGATIVE (NEGATIVE); PH,URINE 6.5 (5-9); PROTEIN,URINE NEGATIVE (NEGATIVE)
[2021-08-01 12:03] LABS: BACTERIA,URINE NEGATIVE /HPF
[2021-08-01 12:04] LABS: SQUAMOUS EPITHELIAL CELL,UR 0-2 /HPF
[2021-08-01] MEDS ORDERED: LORA-404 PO (12:04)
[2021-08-01 12:08] VITALS: BP 109/62
== END 2021-08-01 12:08 | disposition home or self-care (01) ==
LOC: EDUNIT# 11:05 → ER 11:09
DX: F41.9 Anxiety disorder, unspecified (principal); I10 Essential (primary) hypertension; G89.29 Other chronic pain; M54.9 Dorsalgia, unspecified; Z79.82 Long term (current) use of aspirin; Z79.891 Long term (current) use of opiate analgesic
CPT/HCPCS: 36415; 80053; 81000; 83735; 85025

== ENCOUNTER 2021-08-22 23:09 | Emergency (ER) | payer SELFPAY ==
[~2021-08-22 23:09] MED LIST changes: +LORA-404 PO; -POTA99TA21 PO; +POTA99TA26 PO
[2021-08-23] MEDS ORDERED: ANTACID SUSP 30 ML UDC (MYLANTA) ONE (00:10)
[2021-08-23 00:22] VITALS: BP_SYST 142; BP_SYST 153; BP_SYST 155; BP_DIAS 83; BP_DIAS 93
[2021-08-23 00:42] VITALS: BP 153/83
--- NOTE | 2021-08-23 01:20 | ED GI ---
General Chief Complaint: General Problems/Pain Stated Complaint: DIZZY,BLOATED Nursing Triage Note: TO ED VIA POV AND AMBULATORY TO ROOM 5 STATING, "I FEEL LIKE I'M 6 MONTHS . THIS HAPPENS AFTER I EAT." STATES HAS ENLARGED LIVER. Source of Information: Patient, Family Exam Limitations: No Limitations History of Present Illness Date Seen by Provider: Aug 22, 2021 Time Seen by Provider: 23:25 Initial Comments Patient ER by private conveyance with her significant other chief complaint that she is having bloating and right upper quadrant abdominal discomfort worse after eating especially meat for the past 3 weeks. She has a history of hysterectomy and appendix. She followed up with her primary care provider, Vicente Kruse and he performed ultrasound of her gallbladder stating that her gallbladder looked okay she had fatty liver and a clogged biliary duct. He said follow-up in September. She says she cannot tolerate this because she can only eat small amounts and still gets symptomatic. She is passing gas and had a normal bowel movement yesterday. No nausea or vomiting. Allergies and Home Medications Allergies Coded Allergies: oxycodone (Unverified Allergy, Mild, 01/24/09) venlafaxine (Verified Allergy, Mild, 09/07/13) Patient Home Medication List Home Medication List Reviewed: Yes Aspirin (Aspir 81) 81 Mg Tablet.dr, 81 MG PO DAILY, (Reported) Entered as Reported by: DEBRA BRAND on 06/26/16 1541 Azithromycin (Azithromycin) 250 Mg Tablet, 250 MG PO UD Prescribed by: MARIA R BRAND on 04/08/18 2105 Celecoxib (Celecoxib) 200 Mg Capsule, (Reported) Entered as Reported by: KATHY MARMOLEJO on 04/19/17 1556 Hydrocodone Bit/Acetaminophen (Lortab 5 Mg Tablet) 1 Each Tablet, 1-2 EACH PO Q6H PRN for PAIN Prescribed by: JACINTO HERRMANN on 06/26/16 1614 Lorazepam (Ativan) 0.5 Mg Tablet, 0.5 MG PO BID PRN for ANXIETY Prescribed by: WILLIAM JUAN on 08/01/21 1205 Oseltamivir Phosphate (Oseltamivir Phosphate) 75 Mg Capsule, 75 MG PO BID Prescribed by: MARVIN BAEZ on 11/14/18 1150 Prednisone (Prednisone) 10 Mg Tab.ds.pk, 10 MG PO UD Prescribed by: MARIA R BRAND on 04/08/182104 Review of Systems Review of Systems Constitutional: No chills, No diaphoresis EENTM: No Blurred Vision, No Double Vision Respiratory: Denies Cough, Denies SOA at Rest Cardiovascular: Denies Chest Pain, Denies Edema Gastrointestinal: See HPI, Abdomen Distended; Denies Abdominal Pain, Denies Con stipated, Denies Diarrhea, Denies Nausea Genitourinary: Denies Burning, Denies Discharge Musculoskeletal: No back pain, No joint pain All Other Systems Reviewed Negative Unless Noted: Yes Past Wdqhbva-Bbqrvm-Qatdfi Hx Patient Social History Tobacco Use?: Yes Tobacco type used: Cigarettes Smoking Status: Current Everyday Smoker Additional substance use comme: PAST HX MARIJUAN Alcohol Use?: No Immunizations Up To Date Tetanus Booster (TDap): Unknown Second COVID19 Vaccination Ross: 06/12 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 [employer] Seasonal Allergies Seasonal Allergies: No Past Medical History Surgeries: Yes (CARPAL TUNNEL, heart cath, ablation) Adenoidectomy, Appendectomy, Cardiac, Section, Hysterectomy, Oophorectomy, Orthopedic, Tonsillectomy, Tubal Ligation Respiratory: No Tuberculosis Cardiac: Yes (ABLATION for SVT) Chronic Edema/Swelling, Hypertension Neurological: No Female 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 Disorders: Endometriosis 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 0oz. 91.305454ea; BMI Method:Actual General Appearance: WD/WN, no apparent distress HEENT: PERRL/EOMI, normal ENT inspection, TMs normal, pharynx normal Neck: full range of motion, normal inspection Respiratory: lungs clear, normal breath sounds, no respiratory distress, no accessory muscle use Cardiovascular: normal peripheral pulses, regular rate, rhythm Gastrointestinal: normal bowel sounds, non tender, soft, no organomegaly, no pulsatile mass Extremities: normal range of motion, non-tender, normal capillary refill Neurologic/Psychiatric: alert, oriented x 3, other (Anxious affect) Skin: normal color, warm/dry Progress/Results/Core Measures Results/Orders My Orders Orders - AMANDA CORTES Antacid Suspension (Mylanta Suspension (08/23/21 00:10) Vital Signs/I&O 08/22/21 23:24 Temp 36.3 Pulse 71 Resp 18 B/P (MAP) 150/103 (119) Pulse Ox 98 O2 Delivery Room Air Blood Pressure Mean: 119 Progress Progress Note : Time: 23:40 Progress Note Patient had a little dizzy spell flushed warm feeling. Orthostatics were negative during it. Suspect patient having some vasovagal stimulation related t o her biliary tract disease. Discussed that she needs outpatient work-up as she is not having any significant pain, fever, nausea. Gave her some Maalox and instructions to follow-up with Dr. Quintanilla and an outpatient order form for a HIDA scan to work on getting scheduled. Departure Impression Primary Impression: Biliary colic symptom Additional Impression: Vasovagal episode Disposition: HOME, SELF-CARE Condition: Stable Departure-Patient Inst. Decision time for Depature: 23:55 Referrals: FRANK QUINTANILLA MD, DAVID M PA (PCP) Primary Care Physician Patient Instructions: Gallbladder Diet, Vasovagal Response (DC) Add. Discharge Instructions: Work on scheduling a HIDA scan. Call Dr. Quintanilla and request follow-up appointment in the clinic. Return to the ER for intractable pain, intractable vomiting or other worrisome symptoms. Omeprazole 40 mg daily. All discharge instructions reviewed with patient and/or family. Voiced understanding. Copy Copies To 1: FRANK QUINTANILLA MD, TITUS J Aug 23, 2021 01:20
== END 2021-08-23 00:42 | disposition home or self-care (01) ==
LOC: EDUNIT# 23:09 → ER 23:12
DX: R55 Syncope and collapse (principal); I10 Essential (primary) hypertension; F41.9 Anxiety disorder, unspecified; G89.29 Other chronic pain; M54.9 Dorsalgia, unspecified; F17.210 Nicotine dependence, cigarettes, uncomplicated; Z79.82 Long term (current) use of aspirin; Z79.899 Other long term (current) drug therapy; Z79.891 Long term (current) use of opiate analgesic
CPT/HCPCS: 99283

== ENCOUNTER → 2021-09-07 | Outpatient (CLI) | payer OTHER ==
[~2021-09-07] MED LIST changes: +CATHETER FLUSH 10 ML SYR IV PRN
--- NOTE | 2021-09-07 13:33 | Diagnostic Imaging Report ---
INDICATION: Right upper quadrant pain. TECHNIQUE: Patient was administered 5.4 mCi technetium-99m Choletec intravenously, and imaging over the abdomen was performed. At one hour, patient ingested 8 ounces of Ensure, and gallbladder ejection fraction was calculated. Patient denied discomfort during the study. FINDINGS: There is homogeneous uptake of activity by the liver with prompt excretion of activity into the common duct and passage into the small bowel. There is also activity passing into the gallbladder. Gallbladder ejection fraction is slightly low at 27%. Normal values are 35% or greater. IMPRESSION: 1. Patent cystic duct and common bile duct. 2. Low gallbladder ejection fraction of 27%. Dictated by: Dictated on workstation # [id number]
== END ==
LOC: CARD 12:45
PROVIDERS: ATTEND Emergency Medicine
DX: R10.11 Right upper quadrant pain (principal); R14.0 Abdominal distension (gaseous)
CPT/HCPCS: 78227; A9537

== ENCOUNTER 2021-09-13 05:38 | Outpatient (CLI) | payer OTHER ==
[~2021-09-13] VITALS: Ht 154.9 cm; Wt 95.4 kg
[~2021-09-13 05:38] MED LIST changes: -CATHETER FLUSH 10 ML SYR IV PRN
[2021-09-13] MEDS ORDERED: CHOL500044 PO (12:43)
[2021-09-13] MEDS ORDERED: MECL-149 PO (12:43)
== END 2021-09-13 13:08 | disposition home or self-care (01) ==
LOC: PREOP 05:38
PROVIDERS: ATTEND Surgery
DX: Z01.818 Encounter for other preprocedural examination (principal)

== ENCOUNTER 2021-09-20 10:02 | Day surgery (SDC) | payer OTHER ==
[2021-09-20] VITALS (11 sets, daily range): BP systolic 100–129; BP diastolic 58–80
[~2021-09-20] VITALS: Ht 154.9 cm; Wt 95.4 kg
[~2021-09-20 10:02] MED LIST changes: +CHOL500044 PO; +MECL-149 PO
[2021-09-20] MEDS ORDERED: ceFAZolin INJECTION 1,000 MG VIAL IV ONE (10:15)
[2021-09-20] MEDS ORDERED: ONDANSETRON 4 MG/2 ML (SDV) Z0FRAN ONE (10:25)
[2021-09-20] MEDS ORDERED: fentaNYL INJ 100 MCG/2 ML AMP ONE (10:25)
[2021-09-20] MEDS ORDERED: ROCURONIUM 10 MG/ML 5 ML SYRINGE IV ONE (10:25)
[2021-09-20] MEDS ORDERED: proPOfol 200 MG/20 ML (DIPRIVAN) VIAL IV ONE (10:25)
[2021-09-20] MEDS ORDERED: SEVOFLURANE (ULTANE) 15 ML INHAL SOLN ONE (10:25)
[2021-09-20] MEDS ORDERED: LIDOCAINE PF 2% 5 ML (XYLOCAINE) VIAL ONE ×2 (10:25→10:26)
[2021-09-20] MEDS ORDERED: MIDAZOLAM 2 MG/2 ML (VERSED) VIAL ONE (10:25)
[2021-09-20] MEDS: LACTATED RINGERS 1,000 ML IV PRN ×2 (10:30→11:33)
[2021-09-20] MEDS ORDERED: LIDOCAINE/EPI 1%-1:200,000 (XYLOCAINE) 30 ML VIAL ONE (10:30)
--- NOTE | 2021-09-20 10:45 | Progress Note-Pre Operative ---
Pre-Operative Progress Note H&P Reviewed The H&P was reviewed, patient examined and no changes noted. Date Seen by Provider: Sep 20, 2021 Time Seen by Provider: 10:45 Date H&P Reviewed: Sep 20, 2021 Time H&P Reviewed: 10:45 Pre-Operative Diagnosis: biliary dyskinesia, ruq abd pain. TITI EDWARDS DO Sep 20, 2021 10:45
--- NOTE | 2021-09-20 11:59 | Progress Note-Post Operative ---
Post-Operative Progess Note Surgeon (s)/Bond Trader (s) Surgeon TITI EDWARDS DO Bond Trader: Dr. Shelton to assist in retraction dissection and closure. Pre-Operative Diagnosis biliary dyskinesia, ruq abd pain. Post-Operative Diagnosis same Procedure & Operative Findings Date of Procedure 09/20/21 Procedure Performed/Findings PROCEDURE: Laparoscopic cholecystectomy with intraoperative cholangiogram. COMPLICATIONS: None. PROCEDURE: The patient was taken to the operating suite and was prepped and draped in sterile fashion. A surgical pause was performed. Just superior to the umbilicus, a 12 mm incision was made. Dissection was taken down to the fascia, which was then scored and grasped with a Mark and the abdomen was then entered. A 0 Vicryl suture was placed in a [id number] fashion and a Melo trocar was placed and secured. Pneumoperitoneum was achieved. A 5mm trochar place in the subxyphoid and 2 in the right upper quadrant. The gallbladder was then grasped and elevated. Adhesions were taken down with blunt and cautery dissection. The cystic duct, and cystic artery were then dissected out. Clip was placed on the distal portion of the cystic duct which was then partially transected. An arrow catheter was inserted into the duct. The cholangiogram was then performed. No filing defects and contrast made its way into the duodenum. Catheter removed. Clips were placed on proximal portion of the cystic duct and then the duct was then transected. Clips were placed along the proximal and distal portion of the cystic artery which was then transected. Hook cautery was used to dissect the gallbladder from the gallbladder fossa achieving hemostasis. The gallbladder was placed in an Endobag and removed through the 12 mm trocar site. The abdomen was then reinspected. Copious amounts of irrigation were used to irrigate the abdomen and there were no signs of active bleeding. Hemostasis had been achieved. The 12 mm fascial defect was then closed with 0 Vicryl suture that had been placed in a [id number] fashion. The abdomen was then desufflated, the trocars were removed. The abdomen was then washed and dried. The skin was then closed using 4-0 Monocryl in a subcuticular fashion. The abdomen was washed and dried and Skin Affix was place over incisions. Patient tolerated the procedure well without any complications and was taken to the recovery room in stable condition. Anesthesia Type general Estimated Blood Loss Estimated blood loss (mL): minimal Specimens/Packing Specimens Removed gallbladder TITI EDWARDS DO Sep 20, 2021 11:59
[2021-09-20] MEDS ORDERED: DOCU-143 PO (12:01)
[2021-09-20] MEDS ORDERED: ACHD5005 PO (12:01)
--- NOTE | 2021-09-20 12:01 | Discharge Inst-Simple/Standard ---
Discharge Inst-Standard Discharge Medications New, Converted or Re-Newed RX: Transmitted to Pharmacy Patient Instructions/Follow Up Plan of Care/Instructions/FU: 2 weeks Carmen Activity as Tolerated: No Discharge Diet: Regular Diet Other Inst to Patient Follow up Appt: Make appointment for 2 weeks. Instructions: No lifting greater than 10 pounds. No strenuous activity. May shower in 24 hours, no tub bath or soaking. Use incentive spirometer at home as directed. No Smoking Skin/Wound Care: You have special glue over incision, it will fall off on it's own. Symptoms to Report: Appetite Changes, Extremity Discoloration, Numbness/Tingling, Swelling Increased, Bleeding Excessive, Eyesight Changes, Pain Increased, Urine Color Change, Constipation(Persistent), Fever over 101 degree F, Pain/Pressure in chest, Urinating Difficulty, Cough Up/Vomit Blood, Heart Beat Irreg/Pounding, Pain/Pressure in jaw, Vaginal Bleeding Increase, Cramps in feet or legs, Lightheadedness, Pain/Pressure in shoulder, Diarrhea(Persistent), Memory Changes Suddenly, Questions/Concerns, Weight gain consecutive days, Dizziness/Fainting, Nausea/Vomiting, Shortness of Breath, Weight gain over 2 pounds. If eyes or skin turn yellow notify physician. If questions or concerns contact your physician Or seek help at emergency department. TITI EDWARDS DO Sep 20, 2021 12:01
[2021-09-20] MEDS ORDERED: ONDANSETRON 4 MG/2 ML (SDV) Z0FRAN IVP PRN (12:15)
[2021-09-20] MEDS ORDERED: MEPERIDINE (DEMEROL) INJ 50 MG/ML IVP ONE (12:15)
[2021-09-20] MEDS ORDERED: HYDROmorphone 2 MG/ML VIAL (DILAUDID) IV ONE (12:15)
[2021-09-20] MEDS ORDERED: morphine INJ 10 MG/ML 1ML (SYR OR VIAL) IVP ONE (12:15)
[2021-09-20] MEDS ORDERED: fentaNYL INJ 100 MCG/2 ML AMP IVP ONE (12:15)
[2021-09-20] MEDS ORDERED: PROMETHAZINE INJ 25 MG/ML (PHENERGAN) AMP IVP ONE (12:15)
--- NOTE | 2021-09-20 12:16 | Anesthesia-General Post-Op ---
General Patient Condition Mental Status/LOC: Same as Preop Cardiovascular: Satisfactory Nausea/Vomiting: Absent Respiratory: Satisfactory Pain: Controlled Complications: Absent Post Op Complications Complications None Follow Up Care/Instructions Patient Instructions None needed. Anesthesia/Patient Condition Patient Condition Patient is doing well, no complaints, stable vital signs, no apparent adverse anesthesia problems. No complications reported per nursing. TERESA DIETZ CRNA Sep 20, 2021 12:16
[2021-09-20] MEDS ORDERED: HYDROcodone/APAP 5 MG/325 MG (LORTAB) TAB PO ONE (13:15)
--- NOTE | 2021-09-20 13:15 | Diagnostic Imaging Report ---
EXAMINATION: Fluoroscopy up to 1 hour. INDICATION: Abdominal pain. Fluoroscopic assistance was provided for Dr. Morales during his laparoscopic cholecystectomy procedure. 12 seconds of fluoroscopy time was utilized. 63 spot films were also obtained. There has been opacification of the common bile duct via a cystic duct catheter. There is no defect within the common bile duct, but the duct does seem dilated. There is extension of the contrast into the small bowel indicating that the common bile duct is not obstructed. IMPRESSION: Fluoroscopic assistance was provided for Dr. Morales. Dictated by: Dictated on workstation # [id number]
== END 2021-09-20 14:35 ==
LOC: SDC 10:02
PROVIDERS: ATTEND Surgery
DX: K81.1 Chronic cholecystitis (principal); K82.8 Other specified diseases of gallbladder; K66.0 Peritoneal adhesions (postprocedural) (postinfection); I48.91 Unspecified atrial fibrillation; F17.210 Nicotine dependence, cigarettes, uncomplicated; F41.9 Anxiety disorder, unspecified; F32.A Depression, unspecified; Z90.710 Acquired absence of both cervix and uterus; Z90.89 Acquired absence of other organs; Z79.899 Other long term (current) drug therapy; Z83.3 Family history of diabetes mellitus; Z82.49 Family history of ischemic heart disease and other diseases of the circulatory system; Z80.3 Family history of malignant neoplasm of breast
CPT/HCPCS: 76000; 87081

== ENCOUNTER 2023-04-09 07:03 | Outpatient (CLI) | payer OTHER ==
[~2023-04-09] VITALS: Ht 155 cm; Wt 92.0 kg
[~2023-04-09 07:03] MED LIST changes: +DOCU-143 PO
== END 2023-04-09 10:15 | disposition home or self-care (01) ==
LOC: PREOP 07:03
PROVIDERS: ATTEND Surgery
DX: Z01.818 Encounter for other preprocedural examination (principal)

== ENCOUNTER → 2023-04-21 | Day surgery (SDC) | payer OTHER ==
[~2023-04-21] VITALS: Ht 155 cm; Wt 92.0 kg
[~2023-04-21] MED LIST changes: +LACTATED RINGERS 1,000 ML IV STA; +PROPOFOL INJECTION 50 ML IV ONE
[2023-04-21 07:45] VITALS: BP 145/77
--- NOTE | 2023-04-21 08:27 | Progress Note-Pre Operative ---
Pre-Operative Progress Note Date of Available H&P: Apr 03, 2023 Date H&P Reviewed: Apr 21, 2023 Time H&P Reviewed: 08:23 History & Physical: H&P Reviewed, Patient Examed, No changes noted Pre-Operative Diagnosis: screening ALEXANDER ROJO DO Apr 21, 2023 08:27
[2023-04-21 08:55] VITALS: BP 155/68
--- NOTE | 2023-04-21 08:57 | Anesthesia-General Post-Op ---
MAC Patient Condition Mental Status/LOC: Same as Preop Cardiovascular: Satisfactory Nausea/Vomiting: Absent Respiratory: Satisfactory Pain: Controlled Complications: Absent Post Op Complications Complications None Follow Up Care/Instructions Patient Instructions None needed. Anesthesiology Discharge Order Discharge Order Patient is doing well, no complaints, stable vital signs, no apparent adverse anesthesia problems. No complications reported per nursing. TERESA DIETZ CRNA Apr 21, 2023 08:57
--- NOTE | 2023-04-21 08:58 | Progress Note-Post Operative ---
Post-Operative Progess Note Surgeon (s)/Mixing And Molding Machine Operator (s) Surgeon ALEXANDER ROJO DO Mixing And Molding Machine Operator: none Pre-Operative Diagnosis screening Post-Operative Diagnosis Int hemorrhoids Procedure & Operative Findings Date of Procedure 04/21/23 Procedure Performed/Findings Colonoscopy PROCEDURE NOTE: After informed consent was obtained, the patient was brought to the endoscopy suite, placed in bed in left lateral decubitus position. She was administered IV sedation by the LABOR RELATIONS SUPERVISOR who then monitored her vitals the entire time, heart rate, blood pressure and pulse ox and the scope was inserted, pushed all the way to about 150 cm and pushed into the cecum, took a picture of appendiceal orifice and noted the ileocecal valve. Then slowly withdrew the scope insufflating to look circumferentially at the rodrigues starting in the cecum, up the ascending colon to the hepatic flexure, then down the transverse colon, splenic flexure, into the descending colon down in the sigmoid and then into the rectal vault and retroflexed the scope. Took picture of the internal hemorrhoids. The patient tolerated the procedure. She was recovered in endoscopy suite. Recommended for repeat colonoscopy in 10 years. Anesthesia Type IV sedation by LABOR RELATIONS SUPERVISOR Estimated Blood Loss Estimated blood loss (mL): none Specimens/Packing Specimens Removed none ALEXANDER ROJO DO Apr 21, 2023 08:58
--- NOTE | 2023-04-21 08:59 | Endoscopy Discharge Instruct ---
Endo Procedure/Findings Findings 1.: Internal Hemorrhoids Discharge Instructions - Activity: You might feel a little sleepy until tomorrow. This is due to the me dicine you received to relax you. Until tomorrow, you should: NOT drive a car, operate machinery or power tools. NOT drink any alcoholic beverages. NOT make any important decisions or sign importortant papers. Do not return to work until tomorrow, unless otherwise instructed. Resume previous activities tomorrow. Diet: Start by taking liquids. If you tolerate liquids, advance to solid food. 1.: Colonscopy in 10 years Notify Physician - If you experience excessive bleeding, unusual abdominal pain, fever, or chest pain, contact your doctor immediately. Follow-Up: Other Follow up in my office in one week ALEXANDER ROJO DO Apr 21, 2023 08:59
[2023-04-21 09:00] VITALS: BP 141/73
[2023-04-21 09:05] VITALS: BP 147/76
[2023-04-21 09:55] VITALS: BP 147/76
== END | disposition home or self-care (01) ==
LOC: ENDO 07:28
PROVIDERS: ATTEND Surgery
DX: Z12.11 Encounter for screening for malignant neoplasm of colon (principal); K64.8 Other hemorrhoids; F17.210 Nicotine dependence, cigarettes, uncomplicated; E66.9 Obesity, unspecified; Z68.38 Body mass index [BMI] 38.0-38.9, adult

== ENCOUNTER 2023-05-21 22:50 | Emergency (ER) | payer OTHER ==
[~2023-05-21] VITALS: Ht 154 cm; Wt 86.6 kg
[~2023-05-21 22:50] MED LIST changes: -LACTATED RINGERS 1,000 ML IV STA; -PROPOFOL INJECTION 50 ML IV ONE
--- NOTE | 2023-05-21 23:21 | ED GU-Female ---
General Chief Complaint: - 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 Stated Complaint: DIFF URINATING/BLOOD IN URINE Nursing Triage Note: PATIENT STATES THIS EVENING, ABDOMINAL PRESSURE. PATIENT STATES WHEN HER STREAM STOPS SHE HAS PELVIC PAIN. Source: patient ([email or web address]) History of Present Illness Date Seen by Provider: May 21, 2023 Time Seen by Provider: 23:10 Initial Comments 43 yo F with PMH of HTN and urinary spasms presents to the ED with c/o increased urinary frequency, hematuria, and suprapubic pressure that started 2 hours prior to arrival. Pt states that she has had increased urinary urgency with a feeling of incomplete voiding each time. Pt denies dysuria but does note a sharp pain in her vaginal/urethral region at the end of her voids. Pt states that she has had urinary tract infections in the past but that they presented with dysuria and not suprapubic pressure. Denies symptoms being similar to urinary spasms. Pt also notes some increased LE swelling but does state that she chronically "retains fluid". Pt had a complete hysterectomy back in 2011. Pt denies fever, chills, flank pain, change in discharge, diarrhea, nausea, and vomiting. Timing/Duration: just prior to arrival Severity/Quality: mild Location: suprapubic, urethral Activities at Onset: none Prior Genitourinary Problems: none Associated Symptoms: abdominal pain (suprapubic pressure); No dysuria, No fever/chills, No lower back pain, No nausea/vomiting; urinary frequency (DAWOOD DAMON) Allergies and Home Medications Allergies Coded Allergies: oxycodone (Unverified Allergy, Mild, 01/24/09) venlafaxine (Verified Allergy, Mild, 09/07/13) Patient Home Medication List Home Medication List Reviewed: Yes (DAWOOD DAMON) Review of Systems Review of Systems Constitutional: no symptoms reported; No chills, No fever EENTM: no symptoms reported Respiratory: no symptoms reported Cardiovascular: no symptoms reported Gastrointestinal: abdominal pain (suprapubic pressure); No diarrhea, No loss of appetite, No nausea, No vomiting Genitourinary: denies discharge, denies dysuria; frequency; denies flank pain; hematuria, pain, urgency Musculoskeletal: no symptoms reported Skin: no symptoms reported Psychiatric/Neurological: No Symptoms Reported Endocrine: No Symptoms Reported Hematologic/Lymphatic: No Symptoms Reported (DAWOOD DAMON) All Other Systemes Reviewed Negative Unless Noted: Yes (DAWOOD DAMON) Past Weoxarp-Lbgtdg-Zkcsmd Hx Patient Social History Tobacco Use?: Yes Tobacco type used: Cigarettes Smoking Status: Current Everyday Smoker Substance use?: No Alcohol Use?: No (DAWOOD DAMON) Immunizations Up To Date Tetanus Booster (TDap): Unknown First/Initial COVID19 Vaccinat: 06/12 Second COVID19 Vaccination Ross: 06/12 Third COVID19 Vaccination Date: 06/12 (DAWOOD DAMON) Seasonal Allergies Seasonal Allergies: No (DAWOOD DAMON) Past Medical History Surgery/Hospitalization HX: TONSILS, C SECTION, HYSTERECTOMY, ABLATION Surgeries: Yes (CARPAL TUNNEL, heart cath, ablation) Adenoidectomy, Appendectomy, Cardiac, Section, Gallbladder, Hysterectomy, Oophorectomy, Orthopedic, Tonsillectomy, Tubal Ligation Respiratory: No Tuberculosis Currently Using CPAP: No Currently Using BIPAP: No Cardiac: Yes (ABLATION for SVT) Chronic Edema/Swelling, Irregular Heartbeat Neurological: Yes Headaches /Migraines (pseudotumor cerebri), Vertigo Female 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 Disorders: Endometriosis [place] [place] History: Hysterectomy Genitourinary: Yes Bladder Infection Gastrointestinal: No Gall Bladder Disease Musculoskeletal: Yes (RIGHT CARPAL TUNNEL) Arthritis, Chronic Back Pain Endocrine: No HEENT: No Hearing Impairment: Hard of Hearing Cancer: No Psychosocial: Yes Anxiety, Depression Integumentary: No Blood Disorders: No (DAWOOD DAMON) Family Medical History No Pertinent Family Hx (DAWOOD DAMON) Physical Exam Vital Signs Vital Signs - First Documented 05/21/23 23:00 Pulse 87 Resp 20 B/P (MAP) 154/96 (115) Pulse Ox 97 O2 Delivery Room Air (BRANDO MURILLO MD) Vital Signs Capillary Refill : Less Than 3 Seconds (DAWOOD DAMON) Height, Weight, BMI Height: 5'1.00" Weight: 201lbs. 0oz. 91.156261ix; 36.00 BMI Method:Actual General Appearance: WD/WN, no apparent distress HEENT: PERRL/EOMI Cardiovascular: regular rate, rhythm, no murmur Respiratory: lungs clear, normal breath sounds, no respiratory distress, no accessory muscle use Gastrointestinal: normal bowel sounds, non tender, soft Neurologic/Psychiatric: alert, normal mood/affect, oriented x 3 Skin: normal color, warm/dry (DAWOOD DAMON) Progress/Results/Core Measures Suspected Sepsis SIRS Temperature: Pulse: 87 Respiratory Rate: 20 Blood Pressure 154 /96 Mean: 115 (DAWOOD DAMON) Results/Orders Lab Results Laboratory Tests Test 05/21/23 23:00 Range/Units Urine Color BROWN H Urine Clarity CLOUDY Urine pH 6.0 5-9 Urine Specific [place] >=1.030 1.016-1.022 Urine Protein 3+ H NEGATIVE Urine Glucose (UA) NEGATIVE NEGATIVE Urine Ketones NEGATIVE NEGATIVE Urine Nitrite POSITIVE H NEGATIVE Urine Bilirubin 1+ H NEGATIVE Urine Urobilinogen 1.0 < = 1.0 MG/DL Urine Leukocyte Esterase 1+ H NEGATIVE Urine RBC (Auto) 3+ H NEGATIVE Urine RBC >100 H /HPF Urine WBC 5-10 H /HPF Urine Squamous Epithelial Cells 2-5 /HPF Urine Crystals NONE /LPF Urine Bacteria MODERATE H /HPF Urine Casts NONE /LPF Urine Mucus SMALL H /LPF Urine Culture Indicated YES (BRANDO MURILLO MD) My Orders Orders - BRANDO MURILLO MD Ua Culture If Indicated (05/21/23 23:14) Phenazopyridine Tablet (Phenazopyridine (05/22/23 00:00) Urine Culture (05/21/23 23:00) Sulfamethoxazole/Tmp Ds Tablet (Sulfamet (05/22/23 00:15) (BRANDO MURILLO MD) Vital Signs/I&O 05/21/23 23:00 Pulse 87 Resp 20 B/P (MAP) 154/96 (115) Pulse Ox 97 O2 Delivery Room Air (BRANDO MURILLO MD) Vital Signs/I&O Capillary Refill : Less Than 3 Seconds (DAWOOD DAMON) Blood Pressure Mean: 115 Progress Note : Time: 00:13 Progress Note Patient seen and evaluated by me I have reviewed and agree with the medical student's documentation, physical exam and plan of care. Well-developed well- nourished 43-year-old female in no acute distress. She has really no significant abnormal physical exam findings. Soft nontender abdomen. Heart is regular, lungs are clear. Vital signs are stable. She is afebrile. No CVA tenderness. Differential diagnosis includes urinary tract infection, pyelonephritis, kidney stone. Urinalysis reveals evidence of infection with hematuria, leukocyte Estrace, nitrite, red blood cells white blood cells and bacteria. Patient is treated in the emergency department with 100 mg of Pyridium and a dose of Bactrim DS. She has no clinical concerning findings for pyelonephritis. No CVA tenderness, no fever, nontender abdomen. No concerning findings for kidney stone. This appears to be a simple hemorrhagic urinary tract infection. Patient is counseled on drinking lots of water to stay well-hydrated. She is advised to take [id number] Pyridium for bladder spasm/pain. 5 days of Bactrim DS twice daily. Return precautions provided. (BRANDO MURILLO MD) Departure Impression Primary Impression: Urinary tract infection Qualified Codes: N30.01 - Acute cystitis with hematuria Disposition: HOME, SELF-CARE Condition: Stable Departure-Patient Inst. Decision time for Depature: 00:10 (BRANDO MURILLO MD) Referrals: [facility] [place] ([place]) Primary Care Physician KENY VALENTINO APRN (Family) Primary Care Physician Patient Instructions: Urinary Tract Infection, Adult (DC) Add. Discharge Instructions: While you are taking the Antibiotic - Bactrim - please drink lots of water. You can drink cranberry juice or take cranberry pills and they will help you clear the infection. Over the counter "pyridium" or Azo will help with the feelings of bladder spasm and pain. Finish the entire course of antibiotics. twice a day for 5 days. If you develop a fever, vomiting or worsening symptoms please either follow up with your primary care doctor or return to the Emergency Department for re- evaluation. Scripts Sulfamethoxazole/Trimethoprim (Bactrim Ds Tablet) 1 Each Tablet 1 EACH PO BID for 5 Days, #10 TAB Prov: BRANDO MURILLO MD 05/22/23 Verification and Attestation of Medical Student E/M Service A medical student performed and documented this service in my presence. I reviewed and verified all information documented by the medical student and made modifications to such information, when appropriate. I personally performed the physical exam and medical decision making. Brando Murillo, May 22, 2023,00:10 (BRANDO MURILLO MD) Copy Copies To 1: GABRIEL GARIBAY TAYLOR May 21, 2023 23:21 BRANDO MURILLO MD May 22, 2023 00:15
[2023-05-21 23:46] LABS: CLARITY,URINE CLOUDY; COLOR,URINE BROWN; GLUCOSE, URINE (UA) NEGATIVE (NEGATIVE); PROTEIN,URINE 3+ (NEGATIVE)
[2023-05-21 23:47] LABS: BILIRUBIN,URINE 1+ (NEGATIVE); KETONES,URINE NEGATIVE (NEGATIVE); LEUKOCYTE ESTERASE ,URINE 1+ (NEGATIVE); NITRITE,URINE POSITIVE (NEGATIVE); RBC,URINE >100 /HPF
[2023-05-21 23:52] LABS: BACTERIA,URINE MODERATE /HPF
[2023-05-22] MEDS ORDERED: PHENAZOPYRIDINE 100 MG TABLET PO ONE
[2023-05-22] MEDS ORDERED: SULF1TAB38 PO (00:13)
[2023-05-22] MEDS ORDERED: Sulfamethoxazole/Trimethoprim DS TABLET PO ONE (00:15)
[2023-05-22 00:40] VITALS: BP 154/96
== END 2023-05-22 00:40 | disposition home or self-care (01) ==
LOC: EDUNIT# 22:50 → ER 22:52
DX: N39.0 Urinary tract infection, site not specified (principal); F17.210 Nicotine dependence, cigarettes, uncomplicated
CPT/HCPCS: 81000; 87077; 87088; 87186; 99283